=== PATIENT | male | born 1975 | race Caucasian/White ===

== ENCOUNTER 2018-08-20 16:31 | Emergency (ER) | payer MEDICAID, OTHER ==
[2018-08-20] MEDS ORDERED: Zofran 4 MG/2 ML VIAL IV ONE (17:04)
[2018-08-20] MEDS ORDERED: MORPHINE SULFATE 10 MG/ML IV ONE (17:04)
[2018-08-20] MEDS ORDERED: Lasix 40 MG/4 ML IV ONE (17:06)
--- NOTE | 2018-08-20 17:08 | ERPHSYRPT ---
- History of Present Illness Time Seen by Provider: 08/20/18 17:02 Historian: patient, family Exam Limitations: no limitations Patient Subjective Stated Complaint: Pt states "I am in the first stages of liver failure and I have had my abdomen drained about a week ago but now I am hurting really really bad." Triage Nursing Assessment: Pt alert and oriented X 3, skin pwd. PT ambulates with an upright steady gait, pt abdomen is swllen, pt has +4 pitting edema noted to legs and ankles bilat. Physician History: 43 y/o iddm white male with early stage liver failure. his ascites is re accumulating. he last had a paracentesis 6 days ago. he is experiencing abd distension and pain and feels a little soa. liver failure secondary to excess etoh consumption. has not consumed etoh in 7 months. pt has rx for lasix but has not taken any Timing/Duration: day(s) (6 days ascites accumulated) Activities at Onset: none Quality: fullness, pressure Abdominal Pain Onset Location: generalized abdomen Pain Radiation: no radiation Severity of Pain-Max: mild Severity of Pain-Current: mild (mild to mod) Modifying Factors: Improves With: palpation (mild pain) Associated Symptoms: shortness of breath (mild) Previous symptoms: same symptoms as today Allergies/Adverse Reactions: tramadol Allergy (Mild, Verified 11/22/13 18:57) aspirin Allergy (Verified 08/20/18 16:42) bleeding TRIAZADONE Adverse Reaction (Mild, Uncoded 11/22/13 18:57) Nausea Home Medications: Insulin Aspart [NovoLOG Insulin] 10 unit SQ TID 10/03/13 [History] Insulin Glargine [Lantus Insulin] 45 unit SQ QAM 10/03/13 [History] Gabapentin 300 mg PO DAILY 08/20/18 [History] Propranolol HCl 10 mg PO DAILY 08/20/18 [History] Hx Tetanus, Diphtheria Vaccination/Date Given: No Hx Influenza Vaccination/Date Given: No Hx Pneumococcal Vaccination/Date Given: No Immunizations Up to Date: Yes - Review of Systems Constitutional: No Symptoms, No Fever, No Weakness Eyes: No Symptoms Ears, Nose, & Throat: No Symptoms Respiratory: Dyspnea on Exertion (CONKLIN) (mild), No Cough, No Stridor, No Wheezing Cardiac: No No Symptoms Abdominal/Gastrointestinal: Abdominal Pain (more pressure and fullness sensation ), No Nausea, No Vomiting, No Diarrhea Genitourinary Symptoms: No Symptoms, Dysuria, No Frequency, No Hematuria Musculoskeletal: Other (bilat lower ext edema) Psychological: Alcohol Abuse Endocrine: No Symptoms Hematologic/Lymphatic: No Symptoms Immunological/Allergic: No Symptoms All Other Systems: Reviewed and Negative - Past Medical History Pertinent Past Medical History: Yes Neurological History: No Pertinent History ENT History: No Pertinent History Cardiac History: No Pertinent History Respiratory History: No Pertinent History Endocrine Medical History: Diabetes Type II Musculoskeletal History: No Pertinent History GI Medical History: No Pertinent History History: No Pertinent History Psycho-Social History: No Pertinent History Male Reproductive Disorders: No Pertinent History Other Medical History: GOUTY ARTHRITIS, hep c. liver failure - Past Surgical History Past Surgical History: Yes Neuro Surgical History: No Pertinent History Cardiac: No Pertinent History Respiratory: No Pertinent History Gastrointestinal: No Pertinent History Genitourinary: No Pertinent History Musculoskeletal: No Pertinent History Male Surgical History: No Pertinent History Other Surgical History: INGUINAL ABSCESS I&D - Social History Smoking Status: Current every day smoker How long have you smoked: 30 years Exposure to second hand smoke: Yes Drug Use: none Patient Lives Alone: No Significant Family History: heart disease, diabetes - Nursing Vital Signs Nursing Vital Signs: Initial Vital Signs Temperature 98.1 F 08/20/18 16:36 Pulse Rate 100 H 08/20/18 16:36 Respiratory Rate 22 08/20/18 16:36 Blood Pressure 147/102 08/20/18 16:36 O2 Sat by Pulse Oximetry 99 08/20/18 16:36 Pain Scale Pain Intensity 6 - Physical Exam General Appearance: mild distress, alert, anxiety Eye Exam: PERRL/EOMI Ears, Nose, Throat Exam: normal ENT inspection, moist mucous membranes Neck Exam: normal inspection, non-tender, supple, full range of motion Respiratory Exam: normal breath sounds, lungs clear, airway intact, No chest tenderness, No respiratory distress, No accessory muscle use, No rhonchi, No wheezing, No stridor Cardiovascular Exam: regular rate/rhythm, normal heart sounds, normal peripheral pulses Gastrointestinal/Abdomen Exam: soft, normal bowel sounds, No tenderness, No guarding, No rebound Rectal Exam: not done Back Exam: normal inspection, normal range of motion, No CVA tenderness, No vertebral tenderness Extremity Exam: normal inspection, normal range of motion, pelvis stable, pedal edema (bilat lower ext) Neurologic Exam: alert, oriented x 3, cooperative, medication assistant II-XII nml as tested Skin Exam: normal color, warm, dry SpO2 Interpretation: normal SpO2: 99 Oxygen Delivery: Room Air - Course Nursing assessment & vital signs reviewed: Yes Ordered Tests: Active Orders 24 hr Category Date Time Status IV Insertion STAT Care 08/20/18 17:04 Active AMYLASE Stat Lab 08/20/18 17:04 Ordered CBC W DIFF Stat Lab 08/20/18 17:04 Ordered CMP Stat Lab 08/20/18 17:04 Ordered LIPASE Stat Lab 08/20/18 17:04 Ordered Lactic Acid Stat Lab 08/20/18 17:04 Results Lactic Acid Stat Lab 08/20/18 17:10 Ordered PROTIME WITH INR Stat Lab 08/20/18 17:04 Ordered UA W/RFX UR CULTURE Stat Lab 08/20/18 17:34 Received Medication Summary Discontinued Medications Generic Name Dose Route Start Last Admin Trade Name Freq PRN Reason Stop Dose Admin Furosemide 40 mg 08/20/18 17:06 08/20/18 17:13 Lasix 40 Mg/4 Ml IV 08/20/18 17:07 40 mg STAT ONE Administration Furosemide Confirm 08/20/18 17:11 Lasix 40 Mg/4 Ml Administered 08/20/18 17:12 Dose 40 mg .ROUTE .STK-MED ONE Morphine Sulfate 8 mg 08/20/18 17:04 08/20/18 17:12 Morphine Sulfate 10 Mg/Ml IV 08/20/18 17:05 8 mg STAT ONE Administration Morphine Sulfate Confirm 08/20/18 17:11 Morphine Sulfate 10 Mg/Ml Administered 08/20/18 17:12 Dose 10 mg .ROUTE .STK-MED ONE Ondansetron HCl 4 mg 08/20/18 17:04 08/20/18 17:13 Zofran 4 Mg/2 Ml Vial IV 08/20/18 17:05 4 mg STAT ONE Administration Ondansetron HCl Confirm 08/20/18 17:11 Zofran 4 Mg/2 Ml Vial Administered 08/20/18 17:12 Dose 4 mg .ROUTE .STK-MED ONE Oxycodone/Acetaminophen 2 tab 08/20/18 17:52 Percocet Tablet 5/325mg PO 08/20/18 17:53 SENT HOME W/ PATIENT STA Lab/Rad Data: Laboratory Result Diagrams 08/20/18 17:04 08/20/18 17:04 Laboratory Results 08/20/18 08/20/18 08/20/18 Range/Units 17:04 17:04 17:04 WBC 3.2 L (4.0-10.5) K/mm3 RBC 3.52 L (4.1-5.6) M/mm3 Hgb 12.8 (12.5-18.0) gm/dl Hct 36.0 L (42-50) % MCV 102.3 H (78-100) fl MCH 36.3 H (26-32) pg MCHC 35.6 (32-36) g/dl RDW 14.6 H (11.5-14.0) % Plt Count 77 L (150-450) K/mm3 MPV 11.0 H (6-9.5) fl Gran % 64.5 (36.0-66.0) % Eos # (Auto) 0.12 (0-0.5) Absolute Lymphs (auto) 0.61 L (1.0-4.6) Absolute Monos (auto) 0.38 (0.0-1.3) Lymphocytes % 19.2 L (24.0-44.0) % Monocytes % 11.9 (0.0-12.0) % Eosinophils % 3.8 (0.00-5.0) % Basophils % 0.6 (0.0-0.4) % Absolute Granulocytes 2.05 (1.4-6.9) Basophils # 0.02 (0-0.4) Sodium 139 (137-145) mmol/L Potassium 4.1 (3.5-5.1) mmol/L Chloride 108 H (98-107) mmol/L Carbon Dioxide 27 (22-30) mmol/L Anion Gap 8.3 (5-15) MEQ/L BUN 11 (9-20) mg/dL Creatinine 0.65 L (0.66-1.25) mg/dL Estimated GFR > 60.0 ML/MIN Glucose 219 H (74-106) mg/dL Lactic Acid 2.2 H (0.4-2.0) Calcium 8.3 L (8.4-10.2) mg/dL Total Bilirubin 2.30 H (0.2-1.3) mg/dL AST 72 H (17-59) U/L ALT 41 (0-50) U/L Alkaline Phosphatase 203 H (38-126) U/L Serum Total Protein 7.3 (6.3-8.2) g/dL Albumin 2.6 L (3.5-5.0) g/dL Amylase 61 (30-110) U/L Lipase 248 (23-300) U/L - Progress Progress: unchanged, pain not gone completely Progress Note: 08/20/18 17:42 had long discussion with pt. his primary issue is mild to mod abd pain described more as a pressure and fullness. i gave him options for paracentesis. he has chosen interventional radiologist to perform tomorrow morning. we have made arrangements for him. i think this is reasonable since pt vss and clinically pt is not in significant distress. will provide pt with pain medication here in ED. Counseled pt/family regarding: lab results, diagnosis, need for follow-up - Departure Time of Disposition: 17:54 Departure Disposition: Home Clinical Impression: Ascites due to alcoholic cirrhosis, Abdominal pain Condition: Stable Critical Care Time: No Referrals: ROSALINDA BENTON [Primary Care Provider] - Additional Instructions: nothing by mouth after midnight. follow up at registration tomorrow, Aug 21, 2018, morning at 0830 am. radiographic guided paracentesis at 0900
[2018-08-20] MEDS ORDERED: Lasix 40 MG/4 ML ONE (17:11)
[2018-08-20] MEDS ORDERED: MORPHINE SULFATE 10 MG/ML ONE (17:11)
[2018-08-20] MEDS ORDERED: Zofran 4 MG/2 ML VIAL ONE (17:11)
[2018-08-20 17:20] LABS: Lactic Acid 2.2 (0.4-2.0)
[2018-08-20 17:22] LABS: BASOPHIL % 0.6 % (0.0-0.4); Basophil (Absolute #) 0.02 (0-0.4); Eosinophil % 3.8 % (0.00-5.0); Eosinophil (Absolute #) 0.12 (0-0.5); Granulocyte Absolute (ANC) 2.05 (1.4-6.9); Granulocytes % 64.5 % (36.0-66.0); Hemoglobin 12.8 gm/dl (12.5-18.0); Lymphocyte (Absolute #) 0.61 (1.0-4.6); Lymphocytes % 19.2 % (24.0-44.0); Mean Cell Volume 102.3 fl (78-100); Mean Corpuscular Hgb Concent. 35.6 g/dl (32-36); Monocyte (Absolute #) 0.38 (0.0-1.3); Monocytes % 11.9 % (0.0-12.0); Platelet Count 77 K/mm3 (150-450); Red Blood Count 3.52 M/mm3 (4.1-5.6); Red Cell Distribution Width 14.6 % (11.5-14.0); White Blood Count 3.2 K/mm3 (4.0-10.5)
[2018-08-20 17:35] LABS: ALBUMIN 2.6 g/dL (3.5-5.0); ALKALINE PHOSPHATASE 203 U/L (38-126); AMYLASE 61 U/L (30-110); ANION GAP 8.3 MEQ/L (5-15); BLOOD UREA NITROGEN 11 mg/dL (9-20); CHLORIDE 108 mmol/L (98-107); Calcium 8.3 mg/dL (8.4-10.2); Carbon Dioxide 27 mmol/L (22-30); Creatinine 1 0.65 mg/dL (0.66-1.25); Glucose 219 mg/dL (74-106); LIPASE 248 U/L (23-300); Potassium 4.1 mmol/L (3.5-5.1); SGOT/AST 72 U/L (17-59); SGPT/ALT 41 U/L (0-50); SODIUM 139 mmol/L (137-145); Total Protein 7.3 g/dL (6.3-8.2)
[2018-08-20 17:41] LABS: INR 1.45 (0.8-3.0)
[2018-08-20 17:43] LABS: Mean Corpuscular Hemoglobin 36.3 pg (26-32)
[2018-08-20] MEDS ORDERED: PERCOCET TABLET 5/325MG PO STA (17:52)
[2018-08-20 17:55] LABS: Appearance CLEAR (CLEAR); Bilirubin NEGATIVE (NEGATIVE); Glucose >=500 mg/dL (NEGATIVE); Ketones NEGATIVE (NEGATIVE); Leukocyte Esterase NEGATIVE (NEGATIVE); Nitrite NEGATIVE (NEGATIVE); Protein,Urine Dip NEGATIVE (Negative); Specific Gravity 1.027 (1.005-1.025); Urobilinogen 4 mg/dL (0-1)
[2018-08-20 17:56] LABS: Blood SMALL Ery/ul (0-5)
[2018-08-20 18:02] VITALS: BP 122/86; PULSE 90; O2SAT 97
== END 2018-08-20 18:18 | disposition home or self-care (01) ==
LOC: ED 16:31
DX: K70.31 Alcoholic cirrhosis of liver with ascites (principal); R10.9 Unspecified abdominal pain; K70.40 Alcoholic hepatic failure without coma; E11.9 Type 2 diabetes mellitus without complications; Z79.4 Long term (current) use of insulin; Z79.899 Other long term (current) drug therapy
CPT/HCPCS: 36000; 36415; 80053; 81001; 82150; 83605; 83690; 85025; 85610; 96374; 96375; 99284; J1940; J2270; J2405

== ENCOUNTER 2018-08-22 10:24 | Emergency (ER) | payer OTHER ==
[2018-08-22] MEDS ORDERED: XYLOCAINE 1% HCL 20 ML MDV IJ ONE (10:25)
--- NOTE | 2018-08-22 10:34 | ERPHSYRPT ---
- History of Present Illness Time Seen by Provider: 08/22/18 10:28 Historian: patient, family Exam Limitations: no limitations Physician History: 43 y/o noncompliant white male with h/o liver failure and recurrent intraabd ascites. pt was seen here on 08/20/18 and scheduled for u/s guided paracentesis. however, pt overslept and failed to show up. his ascites has increased causing increased abd pain and increasing soa. Timing/Duration: gradual onset, worse Activities at Onset: none Quality: fullness, pressure, tightness Abdominal Pain Onset Location: generalized abdomen Pain Radiation: no radiation Severity of Pain-Max: moderate Severity of Pain-Current: moderate Modifying Factors: Improves With: vomiting Associated Symptoms: loss of appetite, nausea, vomiting Previous symptoms: same symptoms as today Allergies/Adverse Reactions: tramadol Allergy (Mild, Verified 08/22/18 10:35) aspirin Allergy (Verified 08/22/18 10:35) bleeding TRIAZADONE Adverse Reaction (Mild, Uncoded 08/22/18 10:35) Nausea Home Medications: Insulin Aspart [NovoLOG Insulin] 10 unit SQ TID 10/03/13 [History] Insulin Glargine [Lantus Insulin] 45 unit SQ QAM 10/03/13 [History] Gabapentin 300 mg PO DAILY 08/20/18 [History] Propranolol HCl 10 mg PO DAILY 08/20/18 [History] Hx Tetanus, Diphtheria Vaccination/Date Given: No Hx Influenza Vaccination/Date Given: No Hx Pneumococcal Vaccination/Date Given: No - Review of Systems Constitutional: No Symptoms Eyes: No Symptoms Ears, Nose, & Throat: No Symptoms, Throat Swelling Cardiac: No Symptoms Abdominal/Gastrointestinal: Abdominal Pain, Nausea, Vomiting Genitourinary Symptoms: No Symptoms Musculoskeletal: No Symptoms Skin: No Symptoms Neurological: No Symptoms Psychological: No Symptoms Endocrine: No Symptoms Hematologic/Lymphatic: No Symptoms Immunological/Allergic: No Symptoms All Other Systems: Reviewed and Negative - Past Medical History Pertinent Past Medical History: Yes Neurological History: No Pertinent History ENT History: No Pertinent History Cardiac History: No Pertinent History Respiratory History: No Pertinent History Endocrine Medical History: Diabetes Type II Musculoskeletal History: No Pertinent History GI Medical History: No Pertinent History History: No Pertinent History Psycho-Social History: No Pertinent History Male Reproductive Disorders: No Pertinent History Other Medical History: GOUTY ARTHRITIS, hep c. liver failure - Past Surgical History Past Surgical History: Yes Neuro Surgical History: No Pertinent History Cardiac: No Pertinent History Respiratory: No Pertinent History Gastrointestinal: No Pertinent History Genitourinary: No Pertinent History Musculoskeletal: No Pertinent History Male Surgical History: No Pertinent History Other Surgical History: INGUINAL ABSCESS I&D - Social History Smoking Status: Current every day smoker How long have you smoked: 30 years Exposure to second hand smoke: Yes Drug Use: none Patient Lives Alone: No Significant Family History: heart disease, diabetes - Nursing Vital Signs Nursing Vital Signs: Initial Vital Signs Pulse Rate 109 H 08/22/18 10:27 O2 Sat by Pulse Oximetry 98 08/22/18 10:27 Pain Scale Pain Intensity 9 - Physical Exam General Appearance: mild distress, alert, anxiety Eye Exam: PERRL/EOMI, eyes nml inspection Ears, Nose, Throat Exam: normal ENT inspection, moist mucous membranes Neck Exam: normal inspection, non-tender, supple, full range of motion, No lymphadenopathy Respiratory Exam: normal breath sounds, lungs clear, airway intact, No chest tenderness, No respiratory distress Cardiovascular Exam: normal peripheral pulses, tachycardia Gastrointestinal/Abdomen Exam: tenderness (generalized), distention, No guarding , No ecchymosis, No pulsatile mass, No rebound Rectal Exam: not done Back Exam: normal inspection, normal range of motion, No CVA tenderness, No vertebral tenderness Extremity Exam: normal inspection, normal range of motion, pelvis stable Neurologic Exam: alert, oriented x 3, cooperative, fitness manager II-XII nml as tested Skin Exam: normal color, warm, dry Lymphatic Exam: No adenopathy SpO2 Interpretation: normal Oxygen Delivery: Room Air - Course Nursing assessment & vital signs reviewed: Yes Ordered Tests: Active Orders 24 hr Category Date Time Status ABDOMINAL PARACENTESIS [US] Routine Exams 08/22/18 11:00 Ordered Medication Summary Discontinued Medications Generic Name Dose Route Start Last Admin Trade Name Freq PRN Reason Stop Dose Admin Lorazepam 1 mg 08/22/18 11:12 08/22/18 11:16 Ativan 2 Mg/1 Ml Vial IV 08/22/18 11:13 1 mg STAT ONE Administration Lorazepam Confirm 08/22/18 11:12 Ativan 2 Mg/1 Ml Vial Administered 08/22/18 11:13 Dose 2 mg .ROUTE .STK-MED ONE Promethazine HCl 12.5 mg 08/22/18 10:37 08/22/18 10:47 Phenergan 25 Mg Inj IV 08/22/18 10:38 12.5 mg STAT ONE Administration Promethazine HCl Confirm 08/22/18 10:39 Phenergan 25 Mg Inj Administered 08/22/18 10:40 Dose 25 mg .ROUTE .STK-MED ONE - Progress Progress: unchanged Progress Note: 08/22/18 10:48 pt now wants to go to [facility] because i am not giving him narcotic medication. i told him at outset i was not going to give him narcotics but i would give him phenergan iv. i told him the best way to improve his pain is to get the paracentesis performed. it has been scheduled to be done in the next 30 - 45 minutes. he first stated he wants to speak to my boss. i told him i did not have a boss. Whitney, RN terminal operations supervisor, spoke with him. He is going to stay and have paracentesis performed. I told him i would re assess his pain AFTER the paracentesis. 08/22/18 11:43 pt returns from ultrasound. pt refuses paracentesis after signing consent because he does not want area re stuck with needle. the radiologist, radiolgy tech and myself explained to pt about the need to remove the recurrent ascites. we d/w him the risks of not draining fluid including worsening abd pain, worsening soa and even . he understands and several times says no to any further tx. he is to sign an AMA form Counseled pt/family regarding: diagnosis, need for follow-up, rad results - Departure Time of Disposition: 11:46 Departure Disposition: AMA Clinical Impression: Ascites due to alcoholic cirrhosis Condition: Stable Critical Care Time: No Referrals: ROSALINDA BENTON [Primary Care Provider] - Additional Instructions: return to ED if symptoms worsen. take your medications as prescribed
[2018-08-22 10:35] VITALS: O2SAT 98
[2018-08-22] MEDS ORDERED: Phenergan 25 MG INJ IV ONE (10:37)
[2018-08-22] MEDS ORDERED: Phenergan 25 MG INJ ONE (10:39)
[2018-08-22] MEDS ORDERED: Ativan 2 MG/1 ML VIAL ONE (11:12)
[2018-08-22] MEDS ORDERED: Ativan 2 MG/1 ML VIAL IV ONE (11:12)
[2018-08-22 11:19] VITALS: PULSE 101
--- NOTE | 2018-08-22 13:08 | XRAY ---
Indication: Ascites. Limited abdominal sonogram performed for therapeutic paracentesis. Largest pocket seen in the right lower quadrant. Paracentesis not performed as the patient refused and later signed out AGAINST MEDICAL ADVICE per emergency room personnel.
== END 2018-08-22 12:01 | disposition left against medical advice (07) ==
LOC: ED 10:24
DX: K70.31 Alcoholic cirrhosis of liver with ascites (principal); Z79.899 Other long term (current) drug therapy; E11.9 Type 2 diabetes mellitus without complications; Z79.4 Long term (current) use of insulin
CPT/HCPCS: 36000; 76705; 96374; 96375; 99284; J2060; J2550

== ENCOUNTER 2018-11-18 17:28 | Emergency (ER) | payer OTHER ==
[2018-11-18] MEDS ORDERED: MORPHINE SULFATE 10 MG/ML IV ONE (18:01)
[2018-11-18] MEDS ORDERED: Zofran 4 MG/2 ML VIAL IV ONE (18:01)
--- NOTE | 2018-11-18 18:01 | ERPHSYRPT ---
- History of Present Illness Historian: patient, family Exam Limitations: no limitations Patient Subjective Stated Complaint: chest pain Triage Nursing Assessment: Pt c/o of chest pain due to severe fluid build up in abdomen due to end stage of liver failure, tachycardic, tachypnea, afebrile, he states that he was drained last week, N&V, pain in medial gastric region that radiates down abdomen, Timing/Duration: today, gradual onset, worse Activities at Onset: none Quality: fullness, sharpness Abdominal Pain Onset Location: generalized abdomen Pain Radiation: no radiation Severity of Pain-Max: severe Severity of Pain-Current: severe Modifying Factors: Improves With: vomiting Associated Symptoms: heartburn, nausea, vomiting Previous symptoms: same symptoms as today, recently seen, recently treated Hx Tetanus, Diphtheria Vaccination/Date Given: No Hx Influenza Vaccination/Date Given: No Hx Pneumococcal Vaccination/Date Given: No <IRVIN SOTELO - Last Filed: 11/18/18 19:43> <RYAN MELENDEZ - Last Filed: 11/18/18 20:26> - History of Present Illness Time Seen by Provider: 11/18/18 17:57 Physician History: The patient is a 43-year-old male with his complaining of severe abdominal pain due to ascites and also some chest pressure. He has paracentesis done once a week at [facility] in [place]. Last week he had 8 liters of fluid removed from his abdomen. Today his abdomen is greatly swollen and painful. They were on their way to [place] from [place] but were unable to make entire distance because of the abdominal pain. He has no known coronary artery disease. His past medical history is significant for hepatitis C, ascites, end-stage liver disease due to alcoholic cirrhosis. (IRVIN SOTELO) Allergies/Adverse Reactions: tramadol Allergy (Mild, Verified 11/18/18 17:42) aspirin Allergy (Verified 11/18/18 17:42) bleeding hydromorphone [From Dilaudid] Adverse Reaction (Verified 11/18/18 17:42) TRIAZADONE Adverse Reaction (Mild, Uncoded 08/22/18 10:35) Nausea Home Medications: Furosemide 40 mg PO BID 11/18/18 [History] Lactulose 10 gm/15 ml [Enulose 10 GM/15 ML] 40 ml PO BID 11/18/18 [History ] Spironolactone 100 mg PO BID 11/18/18 [History] - Review of Systems Constitutional: No Fever, No Chills Eyes: No Symptoms Ears, Nose, & Throat: No Symptoms Respiratory: No Cough, No Dyspnea Cardiac: No Chest Pain, No Edema, No Syncope Abdominal/Gastrointestinal: Abdominal Pain, Nausea, Vomiting Genitourinary Symptoms: No Dysuria Musculoskeletal: No Back Pain, No Neck Pain Skin: No Rash Neurological: No Dizziness, No Focal Weakness, No Sensory Changes Psychological: No Symptoms Endocrine: No Symptoms Hematologic/Lymphatic: No Symptoms Immunological/Allergic: No Symptoms All Other Systems: Reviewed and Negative <IRVIN SOTELO - Last Filed: 11/18/18 19:43> - Past Medical History Pertinent Past Medical History: Yes Neurological History: No Pertinent History ENT History: No Pertinent History Cardiac History: No Pertinent History Respiratory History: No Pertinent History Endocrine Medical History: Diabetes Type II Musculoskeletal History: No Pertinent History GI Medical History: No Pertinent History History: No Pertinent History Psycho-Social History: No Pertinent History Male Reproductive Disorders: No Pertinent History Other Medical History: GOUTY ARTHRITIS, hep c. liver failure - Past Surgical History Past Surgical History: Yes Neuro Surgical History: No Pertinent History Cardiac: No Pertinent History Respiratory: No Pertinent History Gastrointestinal: No Pertinent History Genitourinary: No Pertinent History Musculoskeletal: No Pertinent History Male Surgical History: No Pertinent History Other Surgical History: INGUINAL ABSCESS I&D - Social History Smoking Status: Current every day smoker How long have you smoked: 30 years Exposure to second hand smoke: Yes Drug Use: none Patient Lives Alone: No Significant Family History: heart disease, diabetes <IRVIN SOTELO - Last Filed: 11/18/18 19:43> - Physical Exam General Appearance: moderate distress Eye Exam: PERRL/EOMI, eyes nml inspection Ears, Nose, Throat Exam: normal ENT inspection, pharynx normal, moist mucous membranes Neck Exam: normal inspection, non-tender, supple, full range of motion Respiratory Exam: normal breath sounds, lungs clear, No respiratory distress Cardiovascular Exam: regular rate/rhythm, normal heart sounds Gastrointestinal/Abdomen Exam: tenderness (generalized), distention Rectal Exam: not done Back Exam: normal inspection Extremity Exam: normal range of motion, pelvis stable, pedal edema Neurologic Exam: alert, oriented x 3, cooperative, normal mood/affect, nml cerebellar function, sensation nml, No motor deficits Skin Exam: normal color, warm, dry SpO2 Interpretation: normal SpO2: 99 <IRVIN SOTELO - Last Filed: 11/18/18 19:43> - Nursing Vital Signs Nursing Vital Signs: Initial Vital Signs Temperature 98.4 F 11/18/18 17:30 Pulse Rate 108 H 11/18/18 17:30 Respiratory Rate 22 11/18/18 17:30 Blood Pressure 134/94 11/18/18 17:30 O2 Sat by Pulse Oximetry 99 11/18/18 17:30 Pain Scale Pain Intensity 10 - Course EKG Interpreted by Me: RATE, Sinus Rhythm, Sinus Tach, NORMAL AXIS, NORMAL INTERVALS, Other (old anteroseptal infarct) - CT Exams Abdomen/Pelvis CT Interpretation: Tele-radiologist Report (per Dr Denise), Other (significant abd/ pelvis ascites with cirrhotic liver; anasarca) <IRVIN SOTELO - Last Filed: 11/18/18 19:43> Ordered Tests: Active Orders 24 hr Category Date Time Status Clean Catch Urine Specimen STAT Care 11/18/18 18:01 Active EKG-ER Only STAT Care 11/18/18 18:01 Active IV Insertion STAT Care 11/18/18 18:01 Active ABDOMEN AND PELVIS W/0 CONTRAS [CT] Stat Exams 11/18/18 18:48 Taken CBC W DIFF Stat Lab 11/18/18 17:50 Completed CMP Stat Lab 11/18/18 17:50 Completed LIPASE Stat Lab 11/18/18 17:50 Completed Lactic Acid Stat Lab 11/18/18 18:30 Results TROPONIN Q3H Lab 11/18/18 17:50 Completed TROPONIN Q3H Lab 11/18/18 21:15 Ordered TROPONIN Q3H Lab 11/19/18 00:15 Ordered TROPONIN Q3H Lab 11/19/18 03:15 Ordered TROPONIN Q3H Lab 11/19/18 06:15 Ordered UA W/RFX UR CULTURE Stat Lab 11/18/18 18:42 Completed Urine Triage Profile Stat Lab 11/18/18 18:42 Completed Medication Summary Discontinued Medications Generic Name Dose Route Start Last Admin Trade Name Freq PRN Reason Stop Dose Admin Morphine Sulfate 8 mg 11/18/18 18:01 11/18/18 18:09 Morphine Sulfate 10 Mg/Ml IV 11/18/18 18:02 8 mg STAT ONE Administration Morphine Sulfate Confirm 11/18/18 18:06 Morphine Sulfate 10 Mg/Ml Administered 11/18/18 18:07 Dose 10 mg .ROUTE .STK-MED ONE Ondansetron HCl 4 mg 11/18/18 18:01 11/18/18 18:07 Zofran 4 Mg/2 Ml Vial IV 11/18/18 18:02 4 mg STAT ONE Administration Ondansetron HCl Confirm 11/18/18 18:05 Zofran 4 Mg/2 Ml Vial Administered 11/18/18 18:06 Dose 4 mg .ROUTE .STK-MED ONE Lab/Rad Data: Laboratory Result Diagrams 11/18/18 17:50 11/18/18 17:50 Laboratory Results 11/18/18 11/18/18 11/18/18 Range/Units 18:42 18:42 18:30 WBC (4.0-10.5) K/mm3 RBC (4.1-5.6) M/mm3 Hgb (12.5-18.0) gm/dl Hct (42-50) % MCV (78-100) fl MCH (26-32) pg MCHC (32-36) g/dl RDW (11.5-14.0) % Plt Count (150-450) K/mm3 MPV (6-9.5) fl Gran % (36.0-66.0) % Eos # (Auto) (0-0.5) Absolute Lymphs (auto) (1.0-4.6) Absolute Monos (auto) (0.0-1.3) Lymphocytes % (24.0-44.0) % Monocytes % (0.0-12.0) % Eosinophils % (0.00-5.0) % Basophils % (0.0-0.4) % Absolute Granulocytes (1.4-6.9) Basophils # (0-0.4) Sodium (137-145) mmol/L Potassium (3.5-5.1) mmol/L Chloride (98-107) mmol/L Carbon Dioxide (22-30) mmol/L Anion Gap (5-15) MEQ/L BUN (9-20) mg/dL Creatinine (0.66-1.25) mg/dL Estimated GFR ML/MIN Glucose (74-106) mg/dL Lactic Acid 2.2 H (0.4-2.0) Calcium (8.4-10.2) mg/dL Total Bilirubin (0.2-1.3) mg/dL AST (17-59) U/L ALT (0-50) U/L Alkaline Phosphatase (38-126) U/L Ammonia (9-30) umol/L Troponin I (0.000-0.034) ng/mL Serum Total Protein (6.3-8.2) g/dL Albumin (3.5-5.0) g/dL Lipase (23-300) U/L Urine Color CAROLANN (YELLOW) Urine Appearance SLIGHTLY CLOUDY (CLEAR) Urine pH 5.0 (5-6) Ur Specific Gerlach 1.025 (1.005-1.025) Urine Protein NEGATIVE (Negative) Urine Ketones NEGATIVE (NEGATIVE) Urine Blood MODERATE (0-5) Ludwig/ul Urine Nitrite NEGATIVE (NEGATIVE) Urine Bilirubin SMALL (NEGATIVE) Urine Urobilinogen 4 (0-1) mg/dL Ur Leukocyte Esterase NEGATIVE (NEGATIVE) Urine WBC (Auto) 0-2 (0-5) /HPF Urine RBC (Auto) 6-10 (0-2) /HPF U Epithel Cells (Auto) NONE (FEW) /HPF Urine Bacteria (Auto) FEW (NEGATIVE) /HPF Calcium Oxalate Crystal 3-5 (NEGATIVE) /HPF Urine Mucus (Auto) MANY (NEGATIVE) /HPF Urine Culture Reflexed NO (NO) Urine Glucose NEGATIVE (NEGATIVE) mg/dL Urine Opiates Level POSITIVE (NEGATIVE) Ur Methadone NEGATIVE (NEGATIVE) Urine Barbiturates POSITIVE (NEGATIVE) Ur Phencyclidine (PCP) NEGATIVE (NEGATIVE) Urine Amphetamine NEGATIVE (NEGATIVE) U Benzodiazepine Level NEGATIVE (NEGATIVE) Urine Cocaine NEGATIVE (NEGATIVE) Urine Marijuana (THC) NEGATIVE (NEGATIVE) 11/18/18 11/18/18 11/18/18 Range/Units 17:50 17:50 17:50 WBC (4.0-10.5) K/mm3 RBC (4.1-5.6) M/mm3 Hgb (12.5-18.0) gm/dl Hct (42-50) % MCV (78-100) fl MCH (26-32) pg MCHC (32-36) g/dl RDW (11.5-14.0) % Plt Count (150-450) K/mm3 MPV (6-9.5) fl Gran % (36.0-66.0) % Eos # (Auto) (0-0.5) Absolute Lymphs (auto) (1.0-4.6) Absolute Monos (auto) (0.0-1.3) Lymphocytes % (24.0-44.0) % Monocytes % (0.0-12.0) % Eosinophils % (0.00-5.0) % Basophils % (0.0-0.4) % Absolute Granulocytes (1.4-6.9) Basophils # (0-0.4) Sodium 139 (137-145) mmol/L Potassium 3.7 (3.5-5.1) mmol/L Chloride 107 (98-107) mmol/L Carbon Dioxide 24 (22-30) mmol/L Anion Gap 11.2 (5-15) MEQ/L BUN 13 (9-20) mg/dL Creatinine 0.78 (0.66-1.25) mg/dL Estimated GFR > 60.0 ML/MIN Glucose 125 H (74-106) mg/dL Lactic Acid (0.4-2.0) Calcium 8.6 (8.4-10.2) mg/dL Total Bilirubin 3.90 H (0.2-1.3) mg/dL AST 71 H (17-59) U/L ALT 37 (0-50) U/L Alkaline Phosphatase 169 H (38-126) U/L Ammonia 41 H (9-30) umol/L Troponin I < 0.012 (0.000-0.034) ng/mL Serum Total Protein 8.0 (6.3-8.2) g/dL Albumin 2.8 L (3.5-5.0) g/dL Lipase 194 (23-300) U/L Urine Color (YELLOW) Urine Appearance (CLEAR) Urine pH (5-6) Ur Specific Gerlach (1.005-1.025) Urine Protein (Negative) Urine Ketones (NEGATIVE) Urine Blood (0-5) Ludwig/ul Urine Nitrite (NEGATIVE) Urine Bilirubin (NEGATIVE) Urine Urobilinogen (0-1) mg/dL Ur Leukocyte Esterase (NEGATIVE) Urine WBC (Auto) (0-5) /HPF Urine RBC (Auto) (0-2) /HPF U Epithel Cells (Auto) (FEW) /HPF Urine Bacteria (Auto) (NEGATIVE) /HPF Calcium Oxalate Crystal (NEGATIVE) /HPF Urine Mucus (Auto) (NEGATIVE) /HPF Urine Culture Reflexed (NO) Urine Glucose (NEGATIVE) mg/dL Urine Opiates Level (NEGATIVE) Ur Methadone (NEGATIVE) Urine Barbiturates (NEGATIVE) Ur Phencyclidine (PCP) (NEGATIVE) Urine Amphetamine (NEGATIVE) U Benzodiazepine Level (NEGATIVE) Urine Cocaine (NEGATIVE) Urine Marijuana (THC) (NEGATIVE) 11/18/18 Range/Units 17:50 WBC 3.7 L (4.0-10.5) K/mm3 RBC 3.15 L (4.1-5.6) M/mm3 Hgb 11.5 L (12.5-18.0) gm/dl Hct 32.3 L (42-50) % MCV 102.5 H (78-100) fl MCH 36.5 H (26-32) pg MCHC 35.6 (32-36) g/dl RDW 14.9 H (11.5-14.0) % Plt Count 83 L (150-450) K/mm3 MPV 10.5 H (6-9.5) fl Gran % 65.0 (36.0-66.0) % Eos # (Auto) 0.13 (0-0.5) Absolute Lymphs (auto) 0.74 L (1.0-4.6) Absolute Monos (auto) 0.42 (0.0-1.3) Lymphocytes % 19.9 L (24.0-44.0) % Monocytes % 11.3 (0.0-12.0) % Eosinophils % 3.5 (0.00-5.0) % Basophils % 0.3 (0.0-0.4) % Absolute Granulocytes 2.41 (1.4-6.9) Basophils # 0.01 (0-0.4) Sodium (137-145) mmol/L Potassium (3.5-5.1) mmol/L Chloride (98-107) mmol/L Carbon Dioxide (22-30) mmol/L Anion Gap (5-15) MEQ/L BUN (9-20) mg/dL Creatinine (0.66-1.25) mg/dL Estimated GFR ML/MIN Glucose (74-106) mg/dL Lactic Acid (0.4-2.0) Calcium (8.4-10.2) mg/dL Total Bilirubin (0.2-1.3) mg/dL AST (17-59) U/L ALT (0-50) U/L Alkaline Phosphatase (38-126) U/L Ammonia (9-30) umol/L Troponin I (0.000-0.034) ng/mL Serum Total Protein (6.3-8.2) g/dL Albumin (3.5-5.0) g/dL Lipase (23-300) U/L Urine Color (YELLOW) Urine Appearance (CLEAR) Urine pH (5-6) Ur Specific Gerlach (1.005-1.025) Urine Protein (Negative) Urine Ketones (NEGATIVE) Urine Blood (0-5) Ludwig/ul Urine Nitrite (NEGATIVE) Urine Bilirubin (NEGATIVE) Urine Urobilinogen (0-1) mg/dL Ur Leukocyte Esterase (NEGATIVE) Urine WBC (Auto) (0-5) /HPF Urine RBC (Auto) (0-2) /HPF U Epithel Cells (Auto) (FEW) /HPF Urine Bacteria (Auto) (NEGATIVE) /HPF Calcium Oxalate Crystal (NEGATIVE) /HPF Urine Mucus (Auto) (NEGATIVE) /HPF Urine Culture Reflexed (NO) Urine Glucose (NEGATIVE) mg/dL Urine Opiates Level (NEGATIVE) Ur Methadone (NEGATIVE) Urine Barbiturates (NEGATIVE) Ur Phencyclidine (PCP) (NEGATIVE) Urine Amphetamine (NEGATIVE) U Benzodiazepine Level (NEGATIVE) Urine Cocaine (NEGATIVE) Urine Marijuana (THC) (NEGATIVE) - Progress Progress: improved Counseled pt/family regarding: lab results, diagnosis, rad results <IRVIN SOTELO - Last Filed: 11/18/18 19:43> - Progress Progress: improved, re-examined <RYAN MELENDEZ - Last Filed: 11/18/18 20:26> - Progress Progress Note: 11/18/18 20:[address] bradley barba at [facility]. i reviewed pt hx , condition, labs ct results with him. he accepts pt in transfer to their facility. (RYAN MELENDEZ) - Departure Time of Disposition: 19:46 Departure Disposition: Transfer (transfer to [facility] per Dr Hatch) Critical Care Time: No <IRVIN SOTELO - Last Filed: 11/18/18 19:43> <RYAN MELENDEZ - Last Filed: 11/18/18 20:26> - Departure Clinical Impression: Ascites, Thrombocytopenia Condition: Stable Referrals: ROSALINDA BENTON [ACTIVE STAFF] -
[2018-11-18] MEDS ORDERED: Zofran 4 MG/2 ML VIAL ONE (18:05)
[2018-11-18] MEDS ORDERED: MORPHINE SULFATE 10 MG/ML ONE (18:06)
[2018-11-18 18:11] LABS: BASOPHIL % 0.3 % (0.0-0.4); Basophil (Absolute #) 0.01 (0-0.4); Eosinophil % 3.5 % (0.00-5.0); Eosinophil (Absolute #) 0.13 (0-0.5); Granulocyte Absolute (ANC) 2.41 (1.4-6.9); Hematocrit 32.3 % (42-50); Hemoglobin 11.5 gm/dl (12.5-18.0); Lymphocyte (Absolute #) 0.74 (1.0-4.6); Lymphocytes % 19.9 % (24.0-44.0); Mean Cell Volume 102.5 fl (78-100); Mean Corpuscular Hemoglobin 36.5 pg (26-32); Mean Corpuscular Hgb Concent. 35.6 g/dl (32-36); Mean Platelet Volume 10.5 fl (6-9.5); Monocyte (Absolute #) 0.42 (0.0-1.3); Monocytes % 11.3 % (0.0-12.0); Platelet Count 83 K/mm3 (150-450); Red Blood Count 3.15 M/mm3 (4.1-5.6); Red Cell Distribution Width 14.9 % (11.5-14.0); White Blood Count 3.7 K/mm3 (4.0-10.5)
[2018-11-18 18:29] LABS: ALBUMIN 2.8 g/dL (3.5-5.0); ALKALINE PHOSPHATASE 169 U/L (38-126); ANION GAP 11.2 MEQ/L (5-15); BLOOD UREA NITROGEN 13 mg/dL (9-20); CHLORIDE 107 mmol/L (98-107); Calcium 8.6 mg/dL (8.4-10.2); Carbon Dioxide 24 mmol/L (22-30); Creatinine 1 0.78 mg/dL (0.66-1.25); Glucose 125 mg/dL (74-106); LIPASE 194 U/L (23-300); Potassium 3.7 mmol/L (3.5-5.1); SGOT/AST 71 U/L (17-59); SGPT/ALT 37 U/L (0-50); SODIUM 139 mmol/L (137-145)
[2018-11-18 18:34] LABS: Lactic Acid 2.2 (0.4-2.0)
[2018-11-18 19:00] LABS: Amphetamine,Urine NEGATIVE (NEGATIVE); Barbiturate,Urine POSITIVE (NEGATIVE); Benzodiazepine,Urine NEGATIVE (NEGATIVE); Cocaine,Urine NEGATIVE (NEGATIVE); Methadone,Urine NEGATIVE (NEGATIVE); Opiate,Urine POSITIVE (NEGATIVE); PCP,Urine NEGATIVE (NEGATIVE); THC,Urine NEGATIVE (NEGATIVE)
[2018-11-18 19:07] LABS: Appearance SLIGHTLY CLOUDY (CLEAR); Bacteria FEW /HPF (NEGATIVE); Bilirubin SMALL (NEGATIVE); Blood MODERATE Ery/ul (0-5); Glucose NEGATIVE (NEGATIVE); Ketones NEGATIVE (NEGATIVE); Leukocyte Esterase NEGATIVE (NEGATIVE); Mucus MANY /HPF (NEGATIVE); Nitrite NEGATIVE (NEGATIVE); Protein,Urine Dip NEGATIVE (Negative); Specific Gravity 1.025 (1.005-1.025); Urobilinogen 4 mg/dL (0-1); WBC 0-2 /HPF (0-5)
[2018-11-18 20:10] VITALS: PULSE 104
[2018-11-18 20:42] VITALS: BP 129/85; O2SAT 94
--- NOTE | 2018-11-19 08:50 | XRAY ---
Indication: Abdomen pain. Ascites. Stage IV liver failure. Multiple contiguous axial images obtained through the abdomen and pelvis without contrast as ordered. Comparison: None Lung bases demonstrates bibasilar subsegmental atelectasis/scarring and partially visualized right middle lobe calcified granuloma. No infiltrate or effusion. Heart is not enlarged. A few subcarinal and right infrahilar calcified nodes. Noncontrasted stomach and bowel loops appear nonobstructed. Patient reports appendectomy. There is massive abdomen/pelvic ascites. Associated small cirrhotic liver, 21 cm splenomegaly, left upper quadrant collateral vessels, and anasarca A few nonobstructing bilateral renal micro-calculi. Remaining gallbladder, pancreas, adrenal glands, kidneys, ureters, and bladder appear unremarkable for noncontrast exam. Minimal aortic calcifications without AAA. Osseous structures intact with lumbosacral junction degenerative disc disease. No ventral or inguinal hernias. Impression: 1. Massive abdomen/pelvic ascites with associated cirrhosis, splenomegaly, left upper quadrant collateral vessels, and anasarca. 2. Nonobstructing bilateral renal micro-calculi. 3. Right base effusion and evidence for old granulomatous disease. CT DI 22.92
== END 2018-11-18 21:10 | disposition short-term general hospital (02) ==
LOC: ED 17:28
DX: R18.8 Other ascites (principal); D69.6 Thrombocytopenia, unspecified; E11.9 Type 2 diabetes mellitus without complications; M10.9 Gout, unspecified; B19.20 Unspecified viral hepatitis C without hepatic coma; R07.89 Other chest pain; K72.90 Hepatic failure, unspecified without coma; K70.30 Alcoholic cirrhosis of liver without ascites
CPT/HCPCS: 36000; 36415; 74176; 80053; 80307; 81001; 82140; 83605; 83690; 84484; 85025; 93005; 96374; 96375; 99284; J2270; J2405

== ENCOUNTER 2018-11-23 16:02 | Emergency (ER) | payer OTHER ==
--- NOTE | 2018-11-23 16:41 | ERPHSYRPT ---
- History of Present Illness Time Seen by Provider: 11/23/18 16:20 Historian: patient, family Patient Subjective Stated Complaint: pt reports abd pain, nausea, vomiting x2 episodes. pt reports history of liver failure, states last sunday he was at [facility] and had 10.8 liters drained from his abdomen as well as esophageal varices banded. states at discharge he was feeling better but has started feeling fullness in his abdomen again. Triage Nursing Assessment: pt is aox3, pupils perrl, sclera have yellow tint, pt afebrile, resps easy and non labored, radial pulses strong and equal, pt is tachycardic at a rate of 112, cap refill < 3 sec, abd is distended and tender with palpation, worse in the lower quadrants, bowel sounds are present and normoactive x4, pt skin sallow warm dry. Physician History: 43 y/o white male well known to our ED. pt has alcoholic cirrhosis and recurrent ascites. he undergoes frequent paracenteses. typical once a week. pt was seen here 6 days ago, sent to [facility] that evening, admitted, and on Sunday, Nov 18, 2018, and took 10.5 liters peritoneal off intraabdominally. pt began having some abd pain this afternoon and he felt if he received injectable pain meds, he could get to Sunday when his next paracentisis will be scheduled. he does not want admission or an extensive workup. i feel this is reasonable. we know him and his condition well and his workup have revealed only reaccumulation of his ascites. he is clinically much improved compared to his last visit 6 days ago. Timing/Duration: gradual onset, other (chronic) Abdominal Pain Onset Location: generalized abdomen Pain Radiation: no radiation Severity of Pain-Max: moderate Severity of Pain-Current: mild Modifying Factors: Improves With: vomiting (once) Previous symptoms: same symptoms as today Allergies/Adverse Reactions: tramadol Allergy (Mild, Verified 11/23/18 16:25) aspirin Allergy (Verified 11/23/18 16:25) bleeding hydromorphone [From Dilaudid] Adverse Reaction (Verified 11/23/18 16:25) TRIAZADONE Adverse Reaction (Mild, Uncoded 11/23/18 16:25) Nausea Home Medications: Furosemide 40 mg PO BID 11/18/18 [History] Lactulose 10 gm/15 ml [Enulose 10 GM/15 ML] 40 ml PO BID 11/18/18 [History ] Spironolactone 100 mg PO BID 11/18/18 [History] Hx Tetanus, Diphtheria Vaccination/Date Given: Yes Hx Influenza Vaccination/Date Given: No Hx Pneumococcal Vaccination/Date Given: No Immunizations Up to Date: Yes - Review of Systems Constitutional: No Symptoms Eyes: No Symptoms Ears, Nose, & Throat: No Symptoms Respiratory: No Symptoms Cardiac: No Symptoms Abdominal/Gastrointestinal: Abdominal Pain, Nausea, Vomiting, Other (mild abd distension) Genitourinary Symptoms: No Symptoms Musculoskeletal: No Symptoms Skin: No Symptoms Neurological: No Symptoms Psychological: No Symptoms Endocrine: No Symptoms Hematologic/Lymphatic: No Symptoms Immunological/Allergic: No Symptoms All Other Systems: Reviewed and Negative - Past Medical History Pertinent Past Medical History: Yes Neurological History: No Pertinent History ENT History: No Pertinent History Cardiac History: No Pertinent History Respiratory History: No Pertinent History Endocrine Medical History: Diabetes Type II Musculoskeletal History: No Pertinent History GI Medical History: No Pertinent History History: No Pertinent History Psycho-Social History: No Pertinent History Male Reproductive Disorders: No Pertinent History Other Medical History: GOUTY ARTHRITIS, hep c. liver failure - Past Surgical History Past Surgical History: Yes Neuro Surgical History: No Pertinent History Cardiac: No Pertinent History Respiratory: No Pertinent History Gastrointestinal: No Pertinent History Genitourinary: No Pertinent History Musculoskeletal: No Pertinent History Male Surgical History: No Pertinent History Other Surgical History: INGUINAL ABSCESS I&D. paracentesis Nov 2018 - Social History Smoking Status: Current every day smoker How long have you smoked: 30 years Exposure to second hand smoke: Yes Drug Use: none Patient Lives Alone: No Significant Family History: heart disease, diabetes - Nursing Vital Signs Nursing Vital Signs: Initial Vital Signs Temperature 98.0 F 11/23/18 16:07 Pulse Rate 112 H 11/23/18 16:07 Respiratory Rate 20 11/23/18 16:07 Blood Pressure 131/91 11/23/18 16:07 O2 Sat by Pulse Oximetry 98 11/23/18 16:07 Pain Scale Pain Intensity 9 - Physical Exam General Appearance: no apparent distress, alert, anxiety Eye Exam: PERRL/EOMI Ears, Nose, Throat Exam: normal ENT inspection, moist mucous membranes Neck Exam: normal inspection, non-tender, supple, full range of motion Respiratory Exam: normal breath sounds, lungs clear, airway intact, No chest tenderness, No respiratory distress, No accessory muscle use, No rhonchi, No wheezing, No stridor Cardiovascular Exam: regular rate/rhythm, normal heart sounds, normal peripheral pulses Gastrointestinal/Abdomen Exam: normal bowel sounds, tenderness (mild diffuse), distention (mild comparatively for him), No guarding, No rebound Rectal Exam: not done Back Exam: normal inspection, normal range of motion, No CVA tenderness, No vertebral tenderness Extremity Exam: normal inspection, normal range of motion, pelvis stable Neurologic Exam: alert, oriented x 3, cooperative, 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
[2018-11-23] MEDS ORDERED: MORPHINE SULFATE 10 MG/ML IM ONE (16:46)
[2018-11-23] MEDS ORDERED: Phenergan 25 MG INJ IM ONE (16:46)
[2018-11-23] MEDS ORDERED: Phenergan 25 MG INJ ONE (16:50)
[2018-11-23] MEDS ORDERED: MORPHINE SULFATE 10 MG/ML ONE (16:50)
[2018-11-23] MEDS ORDERED: Zofran 4 MG/2 ML VIAL IV ONE (16:59)
[2018-11-23] MEDS ORDERED: MORPHINE SULFATE 10 MG/ML IV ONE (17:01)
[2018-11-23] MEDS ORDERED: Zofran 4 MG/2 ML VIAL ONE (17:02)
[2018-11-23 17:25] VITALS: BP 124/87
[2018-11-23 17:35] VITALS: PULSE 110; O2SAT 99
== END 2018-11-23 17:34 | disposition home or self-care (01) ==
LOC: ED 16:02
DX: K74.60 Unspecified cirrhosis of liver (principal); R10.9 Unspecified abdominal pain; G89.29 Other chronic pain; E11.9 Type 2 diabetes mellitus without complications; M10.9 Gout, unspecified; B19.20 Unspecified viral hepatitis C without hepatic coma; Z79.899 Other long term (current) drug therapy
CPT/HCPCS: 36000; 96374; 96375; 99284; J2270; J2405; J2550

== ENCOUNTER 2018-11-29 21:46 | Emergency (ER) | payer OTHER ==
[2018-11-29] MEDS ORDERED: Sodium Chloride 0.9% 1000 ML 1,000 ML IV SCH (22:15)
[2018-11-29] MEDS ORDERED: Zofran 4 MG/2 ML VIAL IV ONE (22:15)
[2018-11-29] MEDS ORDERED: MORPHINE SULFATE 2 MG INJ IV ONE (22:15)
[2018-11-29] MEDS ORDERED: Zofran 4 MG/2 ML VIAL ONE (22:22)
[2018-11-29] MEDS ORDERED: MORPHINE SULFATE 2 MG INJ ONE (22:22)
[2018-11-29] MEDS ORDERED: Sodium Chloride 0.9% 1000 ML 1,000 ML ONE (22:22)
--- NOTE | 2018-11-29 22:29 | ERPHSYRPT ---
- History of Present Illness Time Seen by Provider: 11/29/18 22:05 Patient Subjective Stated Complaint: pt is alert and oriented. pt is ambulatory with a steady gait. pt comes in with c/o sob. pt has a very large, very distended, ascitic abdomen. pt abdomen is firm and tender all over. pt bowel sounds present x4, distant. lung sounds clear. Triage Nursing Assessment: see above Physician History: PATIENT WITH A HISTORY OF ALCOHOLIC CIRRHOSIS, MASSIVE ASCITES COMPLAINS OF WEEKLY ABDOMINAL PARACENTESIS AT [facility], UNDER PARACENTESIS 5 DAYS AGO AND LAST WEEK. HAS UNDERWENT 14 PARACENTESIS OVER THE PAST FEW MONTHS. PATIENT NOW COMPLAINS OF MARKED ABDOMINAL DISTENTION, ABDOMINAL PAIN ASSOCIATED WITH EMESIS X 2 AND DYSPNEA. Timing/Duration: day(s) Activities at Onset: none Quality: sharpness, stabbing Abdominal Pain Onset Location: generalized abdomen Pain Radiation: no radiation Severity of Pain-Max: severe Severity of Pain-Current: severe Modifying Factors: Improves With: other (MARKED ABDOMINAL DISTENTION) Associated Symptoms: nausea, vomiting Previous symptoms: same symptoms as today Allergies/Adverse Reactions: tramadol Allergy (Mild, Verified 11/23/18 16:25) aspirin Allergy (Verified 11/23/18 16:25) bleeding hydromorphone [From Dilaudid] Adverse Reaction (Verified 11/23/18 16:25) TRIAZADONE Adverse Reaction (Mild, Uncoded 11/23/18 16:25) Nausea Home Medications: Furosemide 40 mg PO BID 11/18/18 [History] Lactulose 10 gm/15 ml [Enulose 10 GM/15 ML] 40 ml PO BID 11/18/18 [History ] Spironolactone 100 mg PO BID 11/18/18 [History] Morphine Sulfate 15 mg PO Q12H PRN PRN 11/29/18 [History] Ondansetron ODT 4 MG [Zofran Odt 4 mg] 4 mg PO STAT 11/29/18 [History] Hx Tetanus, Diphtheria Vaccination/Date Given: Yes Hx Influenza Vaccination/Date Given: No Hx Pneumococcal Vaccination/Date Given: Yes Immunizations Up to Date: Yes - Review of Systems Constitutional: No Fever, No Chills Eyes: No Symptoms Ears, Nose, & Throat: No Symptoms Respiratory: No Cough, No Dyspnea Cardiac: No Chest Pain, No Edema, No Syncope Abdominal/Gastrointestinal: Abdominal Pain, Nausea, Vomiting, No Diarrhea Genitourinary Symptoms: No Symptoms, No Dysuria Musculoskeletal: No Symptoms, No Back Pain, No Neck Pain Skin: No Rash Neurological: No Dizziness, No Focal Weakness, No Sensory Changes Psychological: No Symptoms Endocrine: No Symptoms Hematologic/Lymphatic: No Symptoms All Other Systems: Reviewed and Negative - Past Medical History Pertinent Past Medical History: Yes Neurological History: No Pertinent History ENT History: No Pertinent History Cardiac History: No Pertinent History Respiratory History: No Pertinent History Endocrine Medical History: Diabetes Type II Musculoskeletal History: No Pertinent History GI Medical History: No Pertinent History History: No Pertinent History Psycho-Social History: No Pertinent History Male Reproductive Disorders: No Pertinent History Other Medical History: GOUTY ARTHRITIS, hep c. liver failure - Past Surgical History Past Surgical History: Yes Neuro Surgical History: No Pertinent History Cardiac: No Pertinent History Respiratory: No Pertinent History Gastrointestinal: No Pertinent History Genitourinary: No Pertinent History Musculoskeletal: No Pertinent History Male Surgical History: No Pertinent History Other Surgical History: INGUINAL ABSCESS I&D. paracentesis Nov 2018 - Social History Smoking Status: Current every day smoker How long have you smoked: 30 years Exposure to second hand smoke: Yes Drug Use: none Patient Lives Alone: No Significant Family History: heart disease, diabetes - Nursing Vital Signs Nursing Vital Signs: Initial Vital Signs Temperature 98.0 F 11/29/18 21:49 Pulse Rate 119 H 11/29/18 21:49 Respiratory Rate 20 11/29/18 21:49 Blood Pressure 123/96 11/29/18 21:49 O2 Sat by Pulse Oximetry 100 11/29/18 21:49 Pain Scale Pain Intensity 9 - Physical Exam General Appearance: mild distress Eye Exam: PERRL/EOMI Ears, Nose, Throat Exam: normal ENT inspection Neck Exam: normal inspection Respiratory Exam: normal breath sounds Cardiovascular Exam: regular rate/rhythm, normal heart sounds, tachycardia Gastrointestinal/Abdomen Exam: soft, normal bowel sounds, tenderness, distention (WITH ASCITES TO THE XYPHOID PROCESS), other (MARKED ABDOMINAL DISTENTION WITH MASSIVE ASCITES WITH TENDERNESS) Extremity Exam: normal inspection, normal range of motion Neurologic Exam: alert, oriented x 3, cooperative, shake cutter II-XII nml as tested Skin Exam: normal color SpO2 Interpretation: normal SpO2: 100 - Radiology Exams Chest X-ray Interpretation: Interpreted by me, Reviewed by me, No Infiltrates ( ELEVATION RIGHT HEMIDIAPHRAM) Ordered Tests: Active Orders 24 hr Category Date Time Status Clean Catch Urine Specimen STAT Care 11/29/18 22:15 Active EKG-ER Only STAT Care 11/29/18 22:18 Active IV Insertion STAT Care 11/29/18 22:15 Active Oxygen-ED Only Nasal Cannula 2 lpm Care 11/29/18 22:18 Active CHEST 1 VIEW (PORTABLE) Stat Exams 11/29/18 22:19 Taken AMYLASE Stat Lab 11/29/18 22:30 Completed BLOOD CULTURE Stat Lab 11/29/18 22:16 Ordered CBC W DIFF Stat Lab 11/29/18 22:30 Completed CMP Stat Lab 11/29/18 22:30 Completed LIPASE Stat Lab 11/29/18 22:30 Completed Lactic Acid Stat Lab 11/29/18 22:40 Results PT INR [PROTIME WITH INR] Stat Lab 11/29/18 22:30 Completed TROPONIN Q3H Lab 11/29/18 22:30 Completed TROPONIN Q3H Lab 11/30/18 01:30 Ordered TROPONIN Q3H Lab 11/30/18 04:30 Ordered TROPONIN Q3H Lab 11/30/18 07:30 Ordered TROPONIN Q3H Lab 11/30/18 10:30 Ordered UA W/RFX UR CULTURE Stat Lab 11/29/18 22:16 Uncollected Medication Summary Generic Name Dose Route Start Last Admin Trade Name Freq PRN Reason Stop Dose Admin Sodium Chloride 1,000 mls @ 10 mls/hr 11/29/18 22:15 11/29/18 22:29 Sodium Chloride 0.9% 1000 Ml IV 12/29/18 22:14 10 mls/hr .Q24H GUILHERME Administration Discontinued Medications Generic Name Dose Route Start Last Admin Trade Name Freq PRN Reason Stop Dose Admin Morphine Sulfate 2 mg 11/29/18 22:15 11/29/18 22:29 Morphine Sulfate 2 Mg Inj IV 11/29/18 22:16 2 mg STAT ONE Administration Morphine Sulfate Confirm 11/29/18 22:22 Morphine Sulfate 2 Mg Inj Administered 11/29/18 22:23 Dose 2 mg .ROUTE .STK-MED ONE Ondansetron HCl 4 mg 11/29/18 22:15 11/29/18 22:29 Zofran 4 Mg/2 Ml Vial IV 11/29/18 22:16 4 mg STAT ONE Administration Ondansetron HCl Confirm 11/29/18 22:22 Zofran 4 Mg/2 Ml Vial Administered 11/29/18 22:23 Dose 4 mg .ROUTE .STK-MED ONE Lab/Rad Data: Laboratory Result Diagrams 11/29/18 22:30 11/29/18 22:30 Laboratory Results 11/29/18 11/29/18 11/29/18 Range/Units 22:40 22:30 22:30 WBC (4.0-10.5) K/mm3 RBC (4.1-5.6) M/mm3 Hgb (12.5-18.0) gm/dl Hct (42-50) % MCV (78-100) fl MCH (26-32) pg MCHC (32-36) g/dl RDW (11.5-14.0) % Plt Count (150-450) K/mm3 MPV (6-9.5) fl Gran % (36.0-66.0) % Eos # (Auto) (0-0.5) Absolute Lymphs (auto) (1.0-4.6) Absolute Monos (auto) (0.0-1.3) Lymphocytes % (24.0-44.0) % Monocytes % (0.0-12.0) % Eosinophils % (0.00-5.0) % Basophils % (0.0-0.4) % Absolute Granulocytes (1.4-6.9) Basophils # (0-0.4) PT 18.5 H (8.83-12.87) SECONDS INR 1.58 (0.8-3.0) Sodium (137-145) mmol/L Potassium (3.5-5.1) mmol/L Chloride (98-107) mmol/L Carbon Dioxide (22-30) mmol/L Anion Gap (5-15) MEQ/L BUN (9-20) mg/dL Creatinine (0.66-1.25) mg/dL Estimated GFR ML/MIN Glucose (74-106) mg/dL Lactic Acid 2.5 H (0.4-2.0) Calcium (8.4-10.2) mg/dL Total Bilirubin (0.2-1.3) mg/dL AST (17-59) U/L ALT (0-50) U/L Alkaline Phosphatase (38-126) U/L Ammonia 24 (9-30) umol/L Troponin I (0.000-0.034) ng/mL Serum Total Protein (6.3-8.2) g/dL Albumin (3.5-5.0) g/dL Amylase (30-110) U/L Lipase (23-300) U/L 11/29/18 11/29/18 11/29/18 Range/Units 22:30 22:30 22:30 WBC 3.8 L (4.0-10.5) K/mm3 RBC 3.24 L (4.1-5.6) M/mm3 Hgb 11.8 L (12.5-18.0) gm/dl Hct 33.8 L (42-50) % MCV 104.3 H (78-100) fl MCH 36.4 H (26-32) pg MCHC 34.9 (32-36) g/dl RDW 14.9 H (11.5-14.0) % Plt Count 91 L (150-450) K/mm3 MPV 10.3 H (6-9.5) fl Gran % 67.8 H (36.0-66.0) % Eos # (Auto) 0.12 (0-0.5) Absolute Lymphs (auto) 0.61 L (1.0-4.6) Absolute Monos (auto) 0.47 (0.0-1.3) Lymphocytes % 16.2 L (24.0-44.0) % Monocytes % 12.5 H (0.0-12.0) % Eosinophils % 3.2 (0.00-5.0) % Basophils % 0.3 (0.0-0.4) % Absolute Granulocytes 2.56 (1.4-6.9) Basophils # 0.01 (0-0.4) PT (8.83-12.87) SECONDS INR (0.8-3.0) Sodium 138 (137-145) mmol/L Potassium 3.7 (3.5-5.1) mmol/L Chloride 105 (98-107) mmol/L Carbon Dioxide 25 (22-30) mmol/L Anion Gap 11.5 (5-15) MEQ/L BUN 13 (9-20) mg/dL Creatinine 0.85 (0.66-1.25) mg/dL Estimated GFR > 60.0 ML/MIN Glucose 275 H (74-106) mg/dL Lactic Acid (0.4-2.0) Calcium 8.3 L (8.4-10.2) mg/dL Total Bilirubin 2.30 H (0.2-1.3) mg/dL AST 68 H (17-59) U/L ALT 38 (0-50) U/L Alkaline Phosphatase 205 H (38-126) U/L Ammonia (9-30) umol/L Troponin I < 0.012 (0.000-0.034) ng/mL Serum Total Protein 8.0 (6.3-8.2) g/dL Albumin 2.9 L (3.5-5.0) g/dL Amylase 65 (30-110) U/L Lipase 233 (23-300) U/L - Progress Progress Note: 11/29/18 22:29 IV NORMAL SALINE 10ML/HR, ZOFRAN 4MG, MORPHINE 2MG IV Discussed with : Other (DISCUSSED WITH DR GUO AT 2320 OF [facility] ACCEPTS TRANSFER [facility]IA [facility]) - Departure Time of Disposition: 23:37 Departure Disposition: Transfer Clinical Impression: ALCOHOLIC CIRRHOSIS, MASSIVE ASCITIES Condition: Stable Critical Care Time: No Referrals: DOCTOR,NO FAMILY [Primary Care Provider] -
[2018-11-29 22:39] VITALS: BP 110/80; PULSE 104
[2018-11-29 22:45] LABS: Lactic Acid 2.5 (0.4-2.0)
[2018-11-29 22:55] LABS: BASOPHIL % 0.3 % (0.0-0.4); Basophil (Absolute #) 0.01 (0-0.4); Eosinophil % 3.2 % (0.00-5.0); Eosinophil (Absolute #) 0.12 (0-0.5); Granulocyte Absolute (ANC) 2.56 (1.4-6.9); Granulocytes % 67.8 % (36.0-66.0); Hematocrit 33.8 % (42-50); Hemoglobin 11.8 gm/dl (12.5-18.0); INR 1.58 (0.8-3.0); Lymphocyte (Absolute #) 0.61 (1.0-4.6); Lymphocytes % 16.2 % (24.0-44.0); Mean Cell Volume 104.3 fl (78-100); Mean Corpuscular Hemoglobin 36.4 pg (26-32); Mean Corpuscular Hgb Concent. 34.9 g/dl (32-36); Mean Platelet Volume 10.3 fl (6-9.5); Monocyte (Absolute #) 0.47 (0.0-1.3); Monocytes % 12.5 % (0.0-12.0); PROTIME 18.5 SECONDS (8.83-12.87); Platelet Count 91 K/mm3 (150-450); Red Blood Count 3.24 M/mm3 (4.1-5.6); Red Cell Distribution Width 14.9 % (11.5-14.0); White Blood Count 3.8 K/mm3 (4.0-10.5)
[2018-11-29 23:00] LABS: ALBUMIN 2.9 g/dL (3.5-5.0); ALKALINE PHOSPHATASE 205 U/L (38-126); AMYLASE 65 U/L (30-110); ANION GAP 11.5 MEQ/L (5-15); BLOOD UREA NITROGEN 13 mg/dL (9-20); CHLORIDE 105 mmol/L (98-107); Calcium 8.3 mg/dL (8.4-10.2); Carbon Dioxide 25 mmol/L (22-30); Creatinine 1 0.85 mg/dL (0.66-1.25); Glucose 275 mg/dL (74-106); LIPASE 233 U/L (23-300); Potassium 3.7 mmol/L (3.5-5.1); SGOT/AST 68 U/L (17-59); SGPT/ALT 38 U/L (0-50); SODIUM 138 mmol/L (137-145)
[2018-11-29 23:21] VITALS: O2SAT 100
[2018-11-30 01:03] LABS: Slide Review 1 YES
--- NOTE | 2018-11-30 07:37 | XRAY ---
Indication: Dyspnea. Comparison: October 03, 2013. Portable chest markedly underinflated crowding the lung bases. Stable right midlung calcified granuloma. Remaining heart and lungs unremarkable. Bony thorax intact. Impression: Nonacute underinflated chest.
== END 2018-11-29 23:43 | disposition short-term general hospital (02) ==
LOC: ED 21:46
DX: K70.31 Alcoholic cirrhosis of liver with ascites (principal); R11.2 Nausea with vomiting, unspecified; R10.9 Unspecified abdominal pain; Z79.899 Other long term (current) drug therapy
CPT/HCPCS: 36000; 36415; 71045; 80053; 82140; 82150; 83605; 83690; 84484; 85025; 85610; 87040; 93005; 96360; 96374; 96375; 99285; J2270; J2405

== ENCOUNTER 2018-12-06 00:51 | Emergency (ER) | payer OTHER ==
[2018-12-06] MEDS ORDERED: Zofran 4 MG/2 ML VIAL IV ONE (01:06)
[2018-12-06] MEDS ORDERED: Hydromorphone 1 mg/ml Ampule IV ONE (01:06)
[2018-12-06] MEDS ORDERED: Zofran 4 MG/2 ML VIAL ONE (01:11)
[2018-12-06] MEDS ORDERED: Hydromorphone 1 mg/ml Ampule ONE (01:12)
[2018-12-06 01:13] VITALS: PULSE 104; O2SAT 100
[2018-12-06 01:27] LABS: BASOPHIL % 0.5 % (0.0-0.4); Basophil (Absolute #) 0.02 (0-0.4); Eosinophil % 2.9 % (0.00-5.0); Eosinophil (Absolute #) 0.11 (0-0.5); Granulocyte Absolute (ANC) 2.67 (1.4-6.9); Granulocytes % 70.1 % (36.0-66.0); Hematocrit 29.9 % (42-50); Hemoglobin 10.8 gm/dl (12.5-18.0); Lymphocyte (Absolute #) 0.57 (1.0-4.6); Mean Cell Volume 102.7 fl (78-100); Mean Corpuscular Hemoglobin 37.1 pg (26-32); Mean Corpuscular Hgb Concent. 36.1 g/dl (32-36); Mean Platelet Volume 9.9 fl (6-9.5); Monocyte (Absolute #) 0.44 (0.0-1.3); Monocytes % 11.5 % (0.0-12.0); Platelet Count 85 K/mm3 (150-450); Red Blood Count 2.91 M/mm3 (4.1-5.6); Red Cell Distribution Width 13.8 % (11.5-14.0); White Blood Count 3.8 K/mm3 (4.0-10.5)
[2018-12-06 01:39] LABS: ALBUMIN 2.7 g/dL (3.5-5.0); ALKALINE PHOSPHATASE 156 U/L (38-126); AMYLASE 54 U/L (30-110); ANION GAP 9.2 MEQ/L (5-15); BLOOD UREA NITROGEN 22 mg/dL (9-20); CHLORIDE 104 mmol/L (98-107); Calcium 8.5 mg/dL (8.4-10.2); Carbon Dioxide 26 mmol/L (22-30); Creatinine 1 0.71 mg/dL (0.66-1.25); Glucose 249 mg/dL (74-106); LIPASE 179 U/L (23-300); Potassium 4.3 mmol/L (3.5-5.1); SGOT/AST 53 U/L (17-59); SGPT/ALT 31 U/L (0-50); SODIUM 135 mmol/L (137-145); Total Protein 7.5 g/dL (6.3-8.2)
--- NOTE | 2018-12-06 01:39 | ERPHSYRPT ---
- History of Present Illness Time Seen by Provider: 12/06/18 01:15 Historian: patient, family Exam Limitations: no limitations Patient Subjective Stated Complaint: Left sided abdominal pain Triage Nursing Assessment: Patient ambulated back to ED and transferred self to bed. Patient A+O X 3. Patient's skin jaundice, warm and dry. Patient states he is having left sided abdominal pain that is constantly throbbing 05/24. Patient just had paracentesis Sunday12/03/18 at [facility]. Patient's abdomen round and hard with positive bs X 4. Patient states his bowel's are moving well. Lungs clear a/p demetra. Physician History: 43 y/o white male with h/o of recurrent abd pain and recurrent ascites, well known to me and our ED, presenting with recurrent abd pain on left side in area of recent paracentesis. pt undergoes paracentesis at least once a week at [facility]. they did not remove as much fluid as before and he feels more pressure now. no n/v/d. we have done an extensive work up on him often. today, since pt not in significant distress, will check basic labs, give a single iv dose of pain medication and antiemetic then send pt home. pt and spouse agree with this plan. pt is not allergic to dilaudid. he has had it several times. Timing/Duration: intermittent Activities at Onset: none Quality: aching, pressure Abdominal Pain Onset Location: generalized abdomen Pain Radiation: no radiation Severity of Pain-Max: moderate Severity of Pain-Current: moderate Modifying Factors: Worsens With: vomiting Associated Symptoms: No back, No chest pain, No diaphoresis, No diarrhea, No headache, No nausea, No shortness of breath Previous symptoms: same symptoms as today, recently seen, recent hospitalization , recently treated Allergies/Adverse Reactions: tramadol Allergy (Mild, Verified 12/06/18 01:01) aspirin Allergy (Verified 12/06/18 01:01) bleeding hydromorphone [From Dilaudid] Adverse Reaction (Verified 12/06/18 01:01) TRIAZADONE Adverse Reaction (Mild, Uncoded 12/06/18 01:01) Nausea Home Medications: Furosemide 40 mg PO BID 11/18/18 [History] Lactulose 10 gm/15 ml [Enulose 10 GM/15 ML] 40 ml PO BID 11/18/18 [History ] Spironolactone 100 mg PO BID 11/18/18 [History] Ondansetron ODT 4 MG [Zofran Odt 4 mg] 4 mg PO STAT 11/29/18 [History] Hx Tetanus, Diphtheria Vaccination/Date Given: Yes Hx Influenza Vaccination/Date Given: No Hx Pneumococcal Vaccination/Date Given: Yes Immunizations Up to Date: Yes - Review of Systems Constitutional: No Symptoms Eyes: No Symptoms Ears, Nose, & Throat: No Symptoms Respiratory: No Symptoms Cardiac: No Symptoms Abdominal/Gastrointestinal: Abdominal Pain Genitourinary Symptoms: No Symptoms Musculoskeletal: No Symptoms Skin: No Symptoms Neurological: No Symptoms Psychological: No Symptoms Endocrine: No Symptoms Hematologic/Lymphatic: No Symptoms Immunological/Allergic: No Symptoms All Other Systems: Reviewed and Negative - Past Medical History Pertinent Past Medical History: Yes Neurological History: No Pertinent History ENT History: No Pertinent History Cardiac History: No Pertinent History Respiratory History: No Pertinent History Endocrine Medical History: Diabetes Type II Musculoskeletal History: No Pertinent History GI Medical History: No Pertinent History History: No Pertinent History Psycho-Social History: No Pertinent History Male Reproductive Disorders: No Pertinent History Other Medical History: GOUTY ARTHRITIS, hep c. liver failure - Past Surgical History Past Surgical History: Yes Neuro Surgical History: No Pertinent History Cardiac: No Pertinent History Respiratory: No Pertinent History Gastrointestinal: No Pertinent History Genitourinary: No Pertinent History Musculoskeletal: No Pertinent History Male Surgical History: No Pertinent History Other Surgical History: INGUINAL ABSCESS I&D. paracentesis Nov 2018 - Social History Smoking Status: Current every day smoker How long have you smoked: 30 years Exposure to second hand smoke: Yes Drug Use: none Patient Lives Alone: No Significant Family History: heart disease, diabetes - Nursing Vital Signs Nursing Vital Signs: Initial Vital Signs Temperature 98.2 F 12/06/18 01:03 Pulse Rate 104 H 12/06/18 01:03 Respiratory Rate 18 12/06/18 01:03 Blood Pressure 123/87 12/06/18 01:03 O2 Sat by Pulse Oximetry 100 12/06/18 01:03 Pain Scale Pain Intensity 8 - Physical Exam General Appearance: mild distress, alert Eye Exam: PERRL/EOMI, photophobia Ears, Nose, Throat Exam: normal ENT inspection, moist mucous membranes Neck Exam: normal inspection, non-tender, supple, full range of motion Respiratory Exam: normal breath sounds, lungs clear, airway intact, No chest tenderness, No respiratory distress Cardiovascular Exam: regular rate/rhythm, normal heart sounds, normal peripheral pulses Gastrointestinal/Abdomen Exam: tenderness (mild diffuse), distention, other ( ascites diffuse), No guarding, No rebound Rectal Exam: not done Back Exam: normal inspection, normal range of motion, No CVA tenderness, No vertebral tenderness Extremity Exam: normal inspection, normal range of motion, pelvis stable Neurologic Exam: alert, oriented x 3, cooperative, scrap separator II-XII nml as tested Skin Exam: normal color, warm Lymphatic Exam: No adenopathy SpO2 Interpretation: normal SpO2: 100 O2 Delivery: Room Air Ordered Tests: Active Orders 24 hr Category Date Time Status IV Insertion STAT Care 12/06/18 01:06 Active AMYLASE Stat Lab 12/06/18 01:15 Received CBC W DIFF Stat Lab 12/06/18 01:15 Received CMP Stat Lab 12/06/18 01:15 Received LIPASE Stat Lab 12/06/18 01:15 Received Medication Summary Discontinued Medications Generic Name Dose Route Start Last Admin Trade Name Freq PRN Reason Stop Dose Admin Hydromorphone HCl 1 mg 12/06/18 01:06 12/06/18 01:17 Hydromorphone 1 Mg/Ml Ampule IV 12/06/18 01:07 1 mg STAT ONE Administration Hydromorphone HCl Confirm 12/06/18 01:12 Hydromorphone 1 Mg/Ml Ampule Administered 12/06/18 01:13 Dose 1 mg .ROUTE .STK-MED ONE Ondansetron HCl 4 mg 12/06/18 01:06 12/06/18 01:15 Zofran 4 Mg/2 Ml Vial IV 12/06/18 01:07 4 mg STAT ONE Administration Ondansetron HCl Confirm 12/06/18 01:11 Zofran 4 Mg/2 Ml Vial Administered 12/06/18 01:12 Dose 4 mg .ROUTE .STK-MED ONE - Progress Progress: improved Counseled pt/family regarding: lab results, diagnosis, need for follow-up - Departure Time of Disposition: 01:43 Departure Disposition: Home Clinical Impression: Ascites due to alcoholic cirrhosis, Cirrhosis, Recurrent abdominal pain Condition: Stable Critical Care Time: No Referrals: DOCTOR,NO FAMILY [Primary Care Provider] - Additional Instructions: follow up with Jackelyn preciado later today for evaluation of repeat paracentesis.
[2018-12-06 02:18] VITALS: BP 113/75
[2018-12-06 03:29] LABS: Slide Review 1 YES
== END 2018-12-06 02:25 | disposition home or self-care (01) ==
LOC: ED 00:51
DX: K70.31 Alcoholic cirrhosis of liver with ascites (principal); R10.9 Unspecified abdominal pain; E11.9 Type 2 diabetes mellitus without complications; M10.9 Gout, unspecified; B19.20 Unspecified viral hepatitis C without hepatic coma
CPT/HCPCS: 36000; 36415; 80053; 82150; 83690; 85025; 96374; 96375; 99284; J1170; J2405

== ENCOUNTER 2018-12-07 16:01 | Emergency (ER) | payer OTHER ==
[2018-12-07] MEDS ORDERED: ZOFRAN ODT 4 MG PO ONE (16:25)
[2018-12-07] MEDS ORDERED: Sodium Chloride 0.9% 1000 ML 1,000 ML IV SCH (16:30)
[2018-12-07] MEDS ORDERED: ZOFRAN ODT 4 MG ONE (16:30)
[2018-12-07] MEDS ORDERED: Sodium Chloride 0.9% 1000 ML 1,000 ML ONE (16:31)
[2018-12-07 16:53] LABS: BASOPHIL % 0.3 % (0.0-0.4); Basophil (Absolute #) 0.01 (0-0.4); Eosinophil % 2.5 % (0.00-5.0); Eosinophil (Absolute #) 0.08 (0-0.5); Granulocyte Absolute (ANC) 2.38 (1.4-6.9); Granulocytes % 74.4 % (36.0-66.0); Hematocrit 31.5 % (42-50); Hemoglobin 11.1 gm/dl (12.5-18.0); Lymphocyte (Absolute #) 0.38 (1.0-4.6); Lymphocytes % 11.9 % (24.0-44.0); Mean Cell Volume 104.7 fl (78-100); Mean Corpuscular Hgb Concent. 35.2 g/dl (32-36); Mean Platelet Volume 10.2 fl (6-9.5); Monocyte (Absolute #) 0.35 (0.0-1.3); Monocytes % 10.9 % (0.0-12.0); Platelet Count 81 K/mm3 (150-450); Red Blood Count 3.01 M/mm3 (4.1-5.6); Red Cell Distribution Width 13.9 % (11.5-14.0); White Blood Count 3.2 K/mm3 (4.0-10.5)
[2018-12-07 16:57] LABS: INR 1.63 (0.8-3.0); PROTIME 19.1 SECONDS (8.83-12.87)
[2018-12-07 16:59] LABS: PTT 34.1 SECONDS (24.1-36.1)
[2018-12-07 17:01] LABS: ALBUMIN 2.5 g/dL (3.5-5.0); ALKALINE PHOSPHATASE 164 U/L (38-126); AMYLASE 54 U/L (30-110); ANION GAP 9.2 MEQ/L (5-15); BLOOD UREA NITROGEN 22 mg/dL (9-20); CHLORIDE 104 mmol/L (98-107); Calcium 8.2 mg/dL (8.4-10.2); Carbon Dioxide 26 mmol/L (22-30); Creatinine 1 0.91 mg/dL (0.66-1.25); Glucose 250 mg/dL (74-106); LIPASE 259 U/L (23-300); Potassium 4.7 mmol/L (3.5-5.1); SGOT/AST 59 U/L (17-59); SGPT/ALT 36 U/L (0-50); SODIUM 135 mmol/L (137-145); Total Protein 7.2 g/dL (6.3-8.2)
[2018-12-07 17:17] LABS: Mean Corpuscular Hemoglobin 36.8 pg (26-32)
--- NOTE | 2018-12-07 17:20 | ERPHSYRPT ---
- History of Present Illness Time Seen by Provider: 12/07/18 16:05 Historian: patient, family, old records Exam Limitations: no limitations Patient Subjective Stated Complaint: pt here for abd pain that is chronic but worse today after eating at [employer], pt has chronic liver disease and is due sunday for a paracentisis. Triage Nursing Assessment: pt alert, resp easy, skin warm,dry,juadice in color which is normal for him,abd large, distended and firm Physician History: patient with hx of endstage liver disease with ascites; tapped last Sunday; abdomen distending again with pain; Nausea but no vomiting; BMs and voding ok; no fever; no jaundice- Doctors at [facility] for his liver disease Timing/Duration: today (worse), gradual onset, worse Activities at Onset: none Quality: pressure Abdominal Pain Onset Location: generalized abdomen Pain Radiation: no radiation Severity of Pain-Max: moderate Severity of Pain-Current: moderate Modifying Factors: Improves With: nothing Associated Symptoms: nausea, No chest pain, No diarrhea, No fever/chills, No headache, No shortness of breath, No syncope, No vomiting Previous symptoms: same symptoms as today, recently seen, recently treated Allergies/Adverse Reactions: tramadol Allergy (Mild, Verified 12/07/18 16:15) aspirin Allergy (Verified 12/07/18 16:15) bleeding hydromorphone [From Dilaudid] Adverse Reaction (Verified 12/07/18 16:15) TRIAZADONE Adverse Reaction (Mild, Uncoded 12/07/18 16:15) Nausea Home Medications: Furosemide 40 mg PO BID 11/18/18 [History] Lactulose 10 gm/15 ml [Enulose 10 GM/15 ML] 40 ml PO BID 11/18/18 [History ] Spironolactone 100 mg PO BID 11/18/18 [History] Ondansetron ODT 4 MG [Zofran Odt 4 mg] 4 mg PO STAT 11/29/18 [History] Morphine Sulfate Ir 15 mg [Msir 15 mg] 15 mg BID 12/07/18 [History] Hx Tetanus, Diphtheria Vaccination/Date Given: Yes Hx Influenza Vaccination/Date Given: No Hx Pneumococcal Vaccination/Date Given: No Immunizations Up to Date: Yes - Review of Systems Constitutional: No Symptoms Eyes: No Symptoms Ears, Nose, & Throat: No Symptoms Respiratory: No Cough, No Dyspnea, No Wheezing Cardiac: No Chest Pain, No Palpitations, No Syncope Abdominal/Gastrointestinal: Abdominal Pain, Nausea, No Vomiting, No Diarrhea Genitourinary Symptoms: No Symptoms Musculoskeletal: No Symptoms Skin: No Symptoms Neurological: No Symptoms Psychological: No Symptoms Endocrine: No Symptoms Hematologic/Lymphatic: No Symptoms Immunological/Allergic: No Symptoms - Past Medical History Pertinent Past Medical History: Yes Neurological History: No Pertinent History ENT History: No Pertinent History Cardiac History: No Pertinent History Respiratory History: No Pertinent History Endocrine Medical History: Diabetes Type II Musculoskeletal History: No Pertinent History GI Medical History: No Pertinent History History: No Pertinent History Psycho-Social History: No Pertinent History Male Reproductive Disorders: No Pertinent History Other Medical History: GOUTY ARTHRITIS, hep c. liver failure - Past Surgical History Past Surgical History: Yes Neuro Surgical History: No Pertinent History Cardiac: No Pertinent History Respiratory: No Pertinent History Gastrointestinal: No Pertinent History Genitourinary: No Pertinent History Musculoskeletal: No Pertinent History Male Surgical History: No Pertinent History Other Surgical History: INGUINAL ABSCESS I&D. paracentesis Nov 2018 - Social History Smoking Status: Current every day smoker How long have you smoked: 30 years Exposure to second hand smoke: Yes Alcohol Use: None Drug Use: none Patient Lives Alone: No Significant Family History: heart disease, diabetes - Nursing Vital Signs Nursing Vital Signs: Initial Vital Signs Temperature 97.0 F 12/07/18 16:08 Pulse Rate 90 12/07/18 16:08 Respiratory Rate 22 12/07/18 16:08 Blood Pressure 134/83 12/07/18 16:08 O2 Sat by Pulse Oximetry 100 12/07/18 16:08 Pain Scale Pain Intensity 9 - Physical Exam General Appearance: mild distress, alert Eye Exam: PERRL/EOMI, eyes nml inspection, other (no jaundice) Ears, Nose, Throat Exam: normal ENT inspection, TMs normal, pharynx normal, moist mucous membranes Neck Exam: normal inspection, non-tender, supple, full range of motion, No meningismus, No JVD Respiratory Exam: normal breath sounds, lungs clear, airway intact, No chest tenderness, No respiratory distress Cardiovascular Exam: regular rate/rhythm, normal heart sounds, normal peripheral pulses, capillary refill <2 sec, No murmur, No edema Gastrointestinal/Abdomen Exam: normal bowel sounds, distention (moderate ascites - not tense ; ), hepatomegaly, No guarding, No rebound Rectal Exam: deferred Back Exam: normal inspection, normal range of motion, No CVA tenderness, No rash Extremity Exam: normal inspection, normal range of motion, No tonja's sign, No pedal edema Neurologic Exam: alert, oriented x 3, cooperative, roll finisher II-XII nml as tested, normal mood/affect, nml cerebellar function, nml station & gait Skin Exam: normal color, warm, dry, No rash, No petechiae, No cyanosis, No jaundice SpO2 Interpretation: normal SpO2: 96 O2 Delivery: Room Air - Course Nursing assessment & vital signs reviewed: Yes Ordered Tests: Active Orders 24 hr Category Date Time Status Clean Catch Urine Specimen STAT Care 12/07/18 16:16 Active IV Insertion STAT Care 12/07/18 16:16 Active Re-Check Vital Signs STAT Care 12/07/18 16:25 Active AMYLASE Stat Lab 12/07/18 16:43 Completed CBC W DIFF Stat Lab 12/07/18 16:43 Completed CMP Stat Lab 12/07/18 16:43 Completed LIPASE Stat Lab 12/07/18 16:43 Completed Lactic Acid Stat Lab 12/07/18 16:54 Completed PROTIME WITH INR Stat Lab 12/07/18 16:43 Completed PTT Stat Lab 12/07/18 16:43 Completed Medication Summary Generic Name Dose Route Start Last Admin Trade Name Freq PRN Reason Stop Dose Admin Hydromorphone HCl 1 mg 12/07/18 17:50 Hydromorphone 1 Mg/Ml Ampule IV 12/07/18 17:51 STAT ONE Sodium Chloride 1,000 mls @ 50 mls/hr 12/07/18 16:30 12/07/18 16:33 Sodium Chloride 0.9% 1000 Ml IV 01/06/19 16:29 50 mls/hr .Q20H GUILHERME Administration Discontinued Medications Generic Name Dose Route Start Last Admin Trade Name Freq PRN Reason Stop Dose Admin Ondansetron HCl 4 mg 12/07/18 16:25 12/07/18 16:34 Zofran Odt 4 Mg PO 12/07/18 16:26 4 mg STAT ONE Administration Ondansetron HCl Confirm 12/07/18 16:30 Zofran Odt 4 Mg Administered 12/07/18 16:31 Dose 4 mg .ROUTE .STK-MED ONE Lab/Rad Data: Laboratory Result Diagrams 12/07/18 16:43 12/07/18 16:43 Laboratory Results 12/07/18 12/07/18 12/07/18 Range/Units 16:54 16:43 16:43 WBC (4.0-10.5) K/mm3 RBC (4.1-5.6) M/mm3 Hgb (12.5-18.0) gm/dl Hct (42-50) % MCV (78-100) fl MCH (26-32) pg MCHC (32-36) g/dl RDW (11.5-14.0) % Plt Count (150-450) K/mm3 MPV (6-9.5) fl Gran % (36.0-66.0) % Eos # (Auto) (0-0.5) Absolute Lymphs (auto) (1.0-4.6) Absolute Monos (auto) (0.0-1.3) Lymphocytes % (24.0-44.0) % Monocytes % (0.0-12.0) % Eosinophils % (0.00-5.0) % Basophils % (0.0-0.4) % Absolute Granulocytes (1.4-6.9) Basophils # (0-0.4) PT 19.1 H (8.83-12.87) SECONDS INR 1.63 (0.8-3.0) APTT 34.1 (24.1-36.1) SECONDS Sodium (137-145) mmol/L Potassium (3.5-5.1) mmol/L Chloride (98-107) mmol/L Carbon Dioxide (22-30) mmol/L Anion Gap (5-15) MEQ/L BUN (9-20) mg/dL Creatinine (0.66-1.25) mg/dL Estimated GFR ML/MIN Glucose (74-106) mg/dL Lactic Acid 1.7 (0.4-2.0) Calcium (8.4-10.2) mg/dL Total Bilirubin (0.2-1.3) mg/dL AST (17-59) U/L ALT (0-50) U/L Alkaline Phosphatase (38-126) U/L Ammonia 16 (9-30) umol/L Serum Total Protein (6.3-8.2) g/dL Albumin (3.5-5.0) g/dL Amylase (30-110) U/L Lipase (23-300) U/L 12/07/18 12/07/18 Range/Units 16:43 16:43 WBC 3.2 L (4.0-10.5) K/mm3 RBC 3.01 L (4.1-5.6) M/mm3 Hgb 11.1 L (12.5-18.0) gm/dl Hct 31.5 L (42-50) % MCV 104.7 H (78-100) fl MCH 36.8 H (26-32) pg MCHC 35.2 (32-36) g/dl RDW 13.9 (11.5-14.0) % Plt Count 81 L (150-450) K/mm3 MPV 10.2 H (6-9.5) fl Gran % 74.4 H (36.0-66.0) % Eos # (Auto) 0.08 (0-0.5) Absolute Lymphs (auto) 0.38 L (1.0-4.6) Absolute Monos (auto) 0.35 (0.0-1.3) Lymphocytes % 11.9 L (24.0-44.0) % Monocytes % 10.9 (0.0-12.0) % Eosinophils % 2.5 (0.00-5.0) % Basophils % 0.3 (0.0-0.4) % Absolute Granulocytes 2.38 (1.4-6.9) Basophils # 0.01 (0-0.4) PT (8.83-12.87) SECONDS INR (0.8-3.0) APTT (24.1-36.1) SECONDS Sodium 135 L (137-145) mmol/L Potassium 4.7 (3.5-5.1) mmol/L Chloride 104 (98-107) mmol/L Carbon Dioxide 26 (22-30) mmol/L Anion Gap 9.2 (5-15) MEQ/L BUN 22 H (9-20) mg/dL Creatinine 0.91 (0.66-1.25) mg/dL Estimated GFR > 60.0 ML/MIN Glucose 250 H (74-106) mg/dL Lactic Acid (0.4-2.0) Calcium 8.2 L (8.4-10.2) mg/dL Total Bilirubin 2.00 H (0.2-1.3) mg/dL AST 59 (17-59) U/L ALT 36 (0-50) U/L Alkaline Phosphatase 164 H (38-126) U/L Ammonia (9-30) umol/L Serum Total Protein 7.2 (6.3-8.2) g/dL Albumin 2.5 L (3.5-5.0) g/dL Amylase 54 (30-110) U/L Lipase 259 (23-300) U/L reviewed - Progress Progress: re-examined Progress Note: 12/07/18 17:21 cbc h/h= ; plt low 81; wbc - 3.2; bs = 250; bun up=22; cr= .91 na low 135; low albumin2.5; bili t= 2.0 lip and jorge - wnlalk phos up 164;lact= 1.7; inr= 1.63; ptt = 34/ pt=19 12/07/18 17:47 serum ammonia = 16; discussed findings; at bed side; doesn't stick to diet well; here yesterday for med; instructions given; encouraged to follow up with LMD and GI Doc for meds and pain control; Aranza helped N&V; will medicate; recheck and observe Counseled pt/family regarding: lab results, diagnosis, need for follow-up - Departure Time of Disposition: 18:05 Departure Disposition: Home Clinical Impression: Abdominal pain, Cirrhosis, Recurrent abdominal pain, Ascites due to alcoholic cirrhosis Condition: Stable Critical Care Time: No Referrals: DOCTOR,NO FAMILY [Primary Care Provider] - Additional Instructions: stick to diet; take home meds; follow up GI DOc for pain control Follow-up with family doctor as directed. Call for appointment. Return if any problems. If you smoke please stop. Call or follow up with your family doctor for assistance if you need it to stop. Please wear your seatbelt when driving. Have a nice day. Thank you for allowing us to participate in your care today. :o) Dr Michael Anderson
[2018-12-07] MEDS ORDERED: Hydromorphone 1 mg/ml Ampule IV ONE (17:50)
[2018-12-07] MEDS ORDERED: Hydromorphone 1 mg/ml Ampule ONE (17:52)
[2018-12-07 17:56] VITALS: BP 104/78; PULSE 100; O2SAT 99
== END 2018-12-07 18:35 | disposition home or self-care (01) ==
LOC: ED 16:01
DX: R10.9 Unspecified abdominal pain (principal); K70.31 Alcoholic cirrhosis of liver with ascites; M10.9 Gout, unspecified; B19.20 Unspecified viral hepatitis C without hepatic coma; Z79.899 Other long term (current) drug therapy; E11.9 Type 2 diabetes mellitus without complications
CPT/HCPCS: 36000; 36415; 80053; 82140; 82150; 83605; 83690; 85025; 85610; 85730; 96360; 96361; 96374; 99284; J1170; Q0162

== ENCOUNTER 2018-12-08 08:22 | Emergency (ER) | payer OTHER ==
[2018-12-08 09:48] VITALS: BP 102/75; PULSE 70; O2SAT 98
--- NOTE | 2018-12-08 09:58 | ERPHSYRPT ---
- History of Present Illness Historian: patient Exam Limitations: no limitations Patient Subjective Stated Complaint: pt here for chronic abdominal pain, he has liver disease and states she thinks hes belly is bigger then it was yesterday when he was here. he is not due to be tapped till sunday Triage Nursing Assessment: pt alert, resp easy, skin sallow, has large distended ,firm abd. Physician History: Pt presented to the ED complaining of abdominal pain and distention secondary to ascites. Pt with h/o cirrhosis, and end stage liver disease. He came to the ER yesterday and got pain meds (Dilaudid), and today is very uncomfortable, and distended. Pt is getting paracenthesis on Sunday, but he feels very uncomfortable. Pt denies SOB or cough. No N/V/D. No change in mentation. Timing/Duration: week(s) Activities at Onset: none Quality: pressure, tightness Abdominal Pain Onset Location: generalized abdomen Pain Radiation: no radiation Modifying Factors: Improves With: nothing Associated Symptoms: denies symptoms Allergies/Adverse Reactions: tramadol Allergy (Mild, Verified 12/08/18 08:40) aspirin Allergy (Verified 12/08/18 08:40) bleeding hydromorphone [From Dilaudid] Adverse Reaction (Verified 12/08/18 08:40) TRIAZADONE Adverse Reaction (Mild, Uncoded 12/08/18 08:40) Nausea Home Medications: Furosemide 40 mg PO BID 11/18/18 [History] Lactulose 10 gm/15 ml [Enulose 10 GM/15 ML] 40 ml PO BID 11/18/18 [History ] Spironolactone 100 mg PO BID 11/18/18 [History] Ondansetron ODT 4 MG [Zofran Odt 4 mg] 4 mg PO STAT 11/29/18 [History] Morphine Sulfate Ir 15 mg [Msir 15 mg] 15 mg BID 12/07/18 [History] Hx Tetanus, Diphtheria Vaccination/Date Given: Yes Hx Influenza Vaccination/Date Given: No Hx Pneumococcal Vaccination/Date Given: No Immunizations Up to Date: Yes - Review of Systems Constitutional: No Fever, No Chills Eyes: No Symptoms Ears, Nose, & Throat: No Symptoms Respiratory: No Cough, No Dyspnea Cardiac: No Chest Pain, No Edema, No Syncope Abdominal/Gastrointestinal: Abdominal Pain - Past Medical History Pertinent Past Medical History: Yes Neurological History: No Pertinent History ENT History: No Pertinent History Cardiac History: No Pertinent History Respiratory History: No Pertinent History Endocrine Medical History: Diabetes Type II Musculoskeletal History: No Pertinent History GI Medical History: No Pertinent History History: No Pertinent History Psycho-Social History: No Pertinent History Male Reproductive Disorders: No Pertinent History Other Medical History: GOUTY ARTHRITIS, hep c. liver failure - Past Surgical History Past Surgical History: Yes Neuro Surgical History: No Pertinent History Cardiac: No Pertinent History Respiratory: No Pertinent History Gastrointestinal: No Pertinent History Genitourinary: No Pertinent History Musculoskeletal: No Pertinent History Male Surgical History: No Pertinent History Other Surgical History: INGUINAL ABSCESS I&D. paracentesis Nov 2018 - Social History Smoking Status: Current every day smoker How long have you smoked: 30 years Exposure to second hand smoke: Yes Alcohol Use: None Drug Use: none Patient Lives Alone: No Significant Family History: heart disease, diabetes - Nursing Vital Signs Nursing Vital Signs: Initial Vital Signs Temperature 98.2 F 12/08/18 08:35 Pulse Rate 73 12/08/18 08:35 Respiratory Rate 18 12/08/18 08:35 Blood Pressure 107/81 12/08/18 08:35 O2 Sat by Pulse Oximetry 99 12/08/18 08:35 Pain Scale Pain Intensity 9 - Physical Exam General Appearance: no apparent distress, alert, other (jaundiced) Eye Exam: scleral icterus Ears, Nose, Throat Exam: normal ENT inspection, pharynx normal, moist mucous membranes Neck Exam: normal inspection, non-tender, supple, full range of motion Gastrointestinal/Abdomen Exam: distention SpO2: 98 - Course Nursing assessment & vital signs reviewed: Yes - Progress Progress: unchanged Progress Note: 12/08/18 09:56 I tried to transfer pt to [facility]. Multiple phone calls were done, and multiple conversations with ED physicians, hospitalists and transfer centers. Pt was very angry about the time that it takes, and decided to leave AMA. he stated, will go to [facility] ER by himself. - Departure Time of Disposition: 09:57 Departure Disposition: AMA Clinical Impression: Ascites Condition: Stable Critical Care Time: No Referrals: DOCTOR,NO FAMILY [Primary Care Provider] -
== END 2018-12-08 09:50 | disposition left against medical advice (07) ==
LOC: ED 08:22
DX: R18.8 Other ascites (principal); E11.9 Type 2 diabetes mellitus without complications; K76.9 Liver disease, unspecified; M10.9 Gout, unspecified; B19.20 Unspecified viral hepatitis C without hepatic coma; Z79.899 Other long term (current) drug therapy
CPT/HCPCS: 99283

== ENCOUNTER 2018-12-12 11:20 | Emergency (ER) | payer OTHER ==
[2018-12-12] MEDS ORDERED: Hydromorphone 1 mg/ml Ampule IM ONE (11:48)
[2018-12-12] MEDS ORDERED: ZOFRAN ODT 4 MG PO ONE (11:51)
[2018-12-12] MEDS ORDERED: Hydromorphone 1 mg/ml Ampule ONE (11:54)
[2018-12-12] MEDS ORDERED: ZOFRAN ODT 4 MG ONE (11:54)
--- NOTE | 2018-12-12 11:59 | ERPHSYRPT ---
- History of Present Illness Time Seen by Provider: 12/12/18 11:45 Historian: patient Patient Subjective Stated Complaint: pt here for chronic pain to abd. he has liver failure. pt missed hes paracentitis yesterday because hes was ill. is with pt today Triage Nursing Assessment: pt alert, resp easy, skin w/d and large and distended. firm to touch Physician History: 43-year-old white male with history of chronic abdominal pain, liver failure, cirrhosis patient arrives with complaint of abdominal pain which has been chronic. He apparently had been seen in this emergency room several days ago he apparently presented afterwards to [facility] where he was placed on observation and released he received morphine IR 15 mg #20 of them on 12/09/2018. He states that he was supposed to have abdominal paracentesis yesterday but missed that he has an appointment for tomorrow but he states he used all of his morphine IR and is having abdominal pain. Patient with no nausea no vomiting. Past medical history includes chronic abdominal pain, diabetes type 2, gouty arthritis, hepatitis C, liver failure Past surgical history includes inguinal abscess and paracentesis Timing/Duration: today Activities at Onset: none Quality: aching Abdominal Pain Onset Location: generalized abdomen Pain Radiation: no radiation Severity of Pain-Max: moderate Severity of Pain-Current: moderate Modifying Factors: Improves With: other (patient had pain medications but took them all) Associated Symptoms: denies symptoms Previous symptoms: same symptoms as today, recent hospitalization Allergies/Adverse Reactions: tramadol Allergy (Mild, Verified 12/12/18 11:30) aspirin Allergy (Verified 12/12/18 11:30) bleeding hydromorphone [From Dilaudid] Adverse Reaction (Verified 12/12/18 11:30) TRIAZADONE Adverse Reaction (Mild, Uncoded 12/12/18 11:30) Nausea Home Medications: Furosemide 40 mg PO BID 11/18/18 [History] Lactulose 10 gm/15 ml [Enulose 10 GM/15 ML] 40 ml PO BID 11/18/18 [History ] Spironolactone 100 mg PO BID 11/18/18 [History] Ondansetron ODT 4 MG [Zofran Odt 4 mg] 4 mg PO STAT 11/29/18 [History] Morphine Sulfate Ir 15 mg [Msir 15 mg] 15 mg BID 12/07/18 [History] Hx Tetanus, Diphtheria Vaccination/Date Given: Yes Hx Influenza Vaccination/Date Given: No Hx Pneumococcal Vaccination/Date Given: No Immunizations Up to Date: Yes - Review of Systems Constitutional: No Fever, No Chills Eyes: No Symptoms Ears, Nose, & Throat: No Symptoms Respiratory: No Cough, No Dyspnea Cardiac: No Chest Pain, No Edema, No Syncope Abdominal/Gastrointestinal: Abdominal Pain, No Nausea, No Vomiting, No Diarrhea , No Constipation, No Hematemesis, No Hematochezia, No Melena, No Dysphagia, No Appetite Changes Genitourinary Symptoms: No Dysuria Musculoskeletal: No Back Pain, No Neck Pain Skin: No Rash Neurological: No Dizziness, No Focal Weakness, No Sensory Changes Psychological: No Symptoms Endocrine: No Symptoms All Other Systems: Reviewed and Negative - Past Medical History Pertinent Past Medical History: Yes Neurological History: No Pertinent History ENT History: No Pertinent History Cardiac History: No Pertinent History Respiratory History: No Pertinent History Endocrine Medical History: Diabetes Type II Musculoskeletal History: No Pertinent History GI Medical History: No Pertinent History History: No Pertinent History Psycho-Social History: No Pertinent History Male Reproductive Disorders: No Pertinent History Other Medical History: GOUTY ARTHRITIS, hep c. liver failure - Past Surgical History Past Surgical History: Yes Neuro Surgical History: No Pertinent History Cardiac: No Pertinent History Respiratory: No Pertinent History Gastrointestinal: No Pertinent History Genitourinary: No Pertinent History Musculoskeletal: No Pertinent History Male Surgical History: No Pertinent History Other Surgical History: INGUINAL ABSCESS I&D. paracentesis Nov 2018 - Social History Smoking Status: Current every day smoker How long have you smoked: 30 years Exposure to second hand smoke: Yes Alcohol Use: None Drug Use: none Patient Lives Alone: No Significant Family History: heart disease, diabetes - Nursing Vital Signs Nursing Vital Signs: Initial Vital Signs Temperature 97.4 F 12/12/18 11:24 Pulse Rate 99 H 12/12/18 11:24 Respiratory Rate 18 12/12/18 11:24 Blood Pressure 119/91 12/12/18 11:24 O2 Sat by Pulse Oximetry 97 12/12/18 11:24 Pain Scale Pain Intensity 10 - Physical Exam General Appearance: moderate distress, alert Eye Exam: PERRL/EOMI, eyes nml inspection Ears, Nose, Throat Exam: normal ENT inspection, pharynx normal, moist mucous membranes Neck Exam: normal inspection, non-tender, supple, full range of motion Respiratory Exam: normal breath sounds, lungs clear, No respiratory distress Cardiovascular Exam: regular rate/rhythm, normal heart sounds, capillary refill <2 sec Gastrointestinal/Abdomen Exam: normal bowel sounds, tenderness (mild diffuse tenderness), other (abdomen is distended somewhat firm.) Back Exam: normal inspection, normal range of motion, No CVA tenderness, No vertebral tenderness Extremity Exam: normal inspection, normal range of motion, pelvis stable Neurologic Exam: alert, oriented x 3, cooperative, 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, normal mood/affect, nml cerebellar function, sensation nml, No motor deficits Skin Exam: normal color, warm, dry SpO2 Interpretation: normal (97%) SpO2: 97 - Course Nursing assessment & vital signs reviewed: Yes Ordered Tests: Active Orders 24 hr Category Date Time Status IV Insertion STAT Care 12/12/18 13:10 Active AMYLASE Stat Lab 12/12/18 12:20 Completed CBC W DIFF Stat Lab 12/12/18 12:20 Completed CMP Stat Lab 12/12/18 12:20 Completed LIPASE Stat Lab 12/12/18 12:20 Completed Medication Summary Discontinued Medications Generic Name Dose Route Start Last Admin Trade Name Freq PRN Reason Stop Dose Admin Hydromorphone HCl 1 mg 12/12/18 11:48 12/12/18 11:55 Hydromorphone 1 Mg/Ml Ampule IM 12/12/18 11:49 1 mg STAT ONE Administration Hydromorphone HCl Confirm 12/12/18 11:54 Hydromorphone 1 Mg/Ml Ampule Administered 12/12/18 11:55 Dose 1 mg .ROUTE .STK-MED ONE Ondansetron HCl 4 mg 12/12/18 11:51 12/12/18 11:56 Zofran Odt 4 Mg PO 12/12/18 11:52 4 mg STAT ONE Administration Ondansetron HCl Confirm 12/12/18 11:54 Zofran Odt 4 Mg Administered 12/12/18 11:55 Dose 4 mg .ROUTE .STK-MED ONE Lab/Rad Data: Laboratory Result Diagrams 12/12/18 12:20 12/12/18 12:20 Laboratory Results 12/12/18 12/12/18 Range/Units 12:20 12:20 WBC 2.1 L (4.0-10.5) K/mm3 RBC 2.78 L (4.1-5.6) M/mm3 Hgb 10.3 L (12.5-18.0) gm/dl Hct 29.4 L (42-50) % MCV 105.8 H (78-100) fl MCH 37.0 H (26-32) pg MCHC 35.0 (32-36) g/dl RDW 13.5 (11.5-14.0) % Plt Count 70 L (150-450) K/mm3 MPV 9.9 H (6-9.5) fl Gran % 68.2 H (36.0-66.0) % Eos # (Auto) 0.04 (0-0.5) Absolute Lymphs (auto) 0.35 L (1.0-4.6) Absolute Monos (auto) 0.27 (0.0-1.3) Lymphocytes % 16.6 L (24.0-44.0) % Monocytes % 12.8 H (0.0-12.0) % Eosinophils % 1.9 (0.00-5.0) % Basophils % 0.5 (0.0-0.4) % Absolute Granulocytes 1.44 (1.4-6.9) Basophils # 0.01 (0-0.4) Sodium 136 L (137-145) mmol/L Potassium 4.3 (3.5-5.1) mmol/L Chloride 106 (98-107) mmol/L Carbon Dioxide 26 (22-30) mmol/L Anion Gap 8.6 (5-15) MEQ/L BUN 19 (9-20) mg/dL Creatinine 1.04 (0.66-1.25) mg/dL Estimated GFR > 60.0 ML/MIN Glucose 135 H (74-106) mg/dL Calcium 8.0 L (8.4-10.2) mg/dL Total Bilirubin 2.60 H (0.2-1.3) mg/dL AST 65 H (17-59) U/L ALT 35 (0-50) U/L Alkaline Phosphatase 138 H (38-126) U/L Serum Total Protein 7.2 (6.3-8.2) g/dL Albumin 2.4 L (3.5-5.0) g/dL Amylase 54 (30-110) U/L Lipase 127 (23-300) U/L Slides for Path Review YES - Progress Progress: improved Progress Note: 12/12/18 11:56 43-year-old white male with history of chronic abdominal pain cirrhosis patient has been seen here several times over the past week ago secondary to abdominal pain he apparently had had paracentesis in the past he went to [facility] several days ago and was released he states he was supposed to have paracentesis yesterday but he did not go. He states he has an appointment for abdominal paracentesis tomorrow. He apparently had a prescription for morphine sulfate IR 15 mg he received 25 of these on December 09, 2018 he states he finished his last one last night. He states he is having abdominal pain. On physical examination patient does have a distended abdomen it is mildly firm but still somewhat soft he has positive bowel sounds. He has diffuse tenderness. I have sent away for records for [facility]. Patient apparently has an appointment tomorrow afternoon with the radiologist to perform paracentesis. Will go ahead and give patient hydromorphone 1 mg IM and Zofran 4 mg by mouth. And obtain CBC CMP amylase lipase. Will review records from [facility]. 12/12/18 12:18 Medical records from patient's visit to [facility] are reviewed. Patient with a ultrasound pre-paracentesis evaluation done on December 09, 2018 at 1140 Impression: Moderate ascites in the abdomen. Patient apparently did not want paracentesis at that time. Patient's labs were reviewed from December 08 patient with white count 2.6 hemoglobin 10.8 hematocrit 30.9 platelets 86 Patient with chemistry from December 08, 2018 sodium 140 potassium 4.8 chloride 107 bicarbonate 26 carbon dioxide 26 glucose 201 creatinine 1 total bilirubin 1.5 AST 37 ALT 34 alkaline phosphatase 172 , Impression 1 chronic abdominal pain. 2 ascites. Plan Will review patient's CBC CMP amylase lipase here in the emergency room. Patient was given hydromorphone 1 mg IM and Zofran 4 mg by mouth. Will plan to discharge patient if labs are stable he is to follow-up with [facility] tomorrow as scheduled. We will not write take-home narcotics patient already was given 20 morphine IR which were supposed to last 4 days and he took them in 2 days he will need to follow-up with either his family doctor or his clinical research spec for further pain medications. 12/12/18 13:11 Patient's labs are reviewed and unfortunately patient with a white count down to 2.1 platelets are 70 Patient appears to be stable I discussed the case with Dr. Aldana at [facility] as well as Dr. Quezada. They do relate that the patient has had a leukopenia and thrombocytopenia in the past however they do state that the patient would benefit from paracentesis. Will go ahead and transfer patient over to [facility]. Impression 1. Abdominal pain 2. Cirrhosis 3. Ascites 4. Leukopenia 5. Thrombocytopenia. - Departure Time of Disposition: 13:13 Departure Disposition: Transfer ([facility]) Clinical Impression: Chronic abdominal pain, Ascites due to alcoholic cirrhosis, Thrombocytopenia Ascites Qualifiers: Ascites type: due to alcoholic cirrhosis Qualified Code(s): K70.31 - Alcoholic cirrhosis of liver with ascites Leukopenia Qualifiers: Leukopenia type: unspecified Qualified Code(s): D72.819 - Decreased white blood cell count, unspecified Condition: Fair Critical Care Time: No Referrals: ANSLEY GARRETT [Primary Care Provider] - Additional Instructions: Return home. Clear fluids 24 hours if abdominal pain. Present for your abdominal paracentesis tomorrow as scheduled. Follow-up with your family doctor or clinical research spec for further pain medications. Return for acute distress or for severe symptoms.
[2018-12-12 12:22] LABS: BASOPHIL % 0.5 % (0.0-0.4); Basophil (Absolute #) 0.01 (0-0.4); Eosinophil % 1.9 % (0.00-5.0); Eosinophil (Absolute #) 0.04 (0-0.5); Granulocyte Absolute (ANC) 1.44 (1.4-6.9); Granulocytes % 68.2 % (36.0-66.0); Hematocrit 29.4 % (42-50); Hemoglobin 10.3 gm/dl (12.5-18.0); Lymphocyte (Absolute #) 0.35 (1.0-4.6); Lymphocytes % 16.6 % (24.0-44.0); Mean Cell Volume 105.8 fl (78-100); Mean Platelet Volume 9.9 fl (6-9.5); Monocyte (Absolute #) 0.27 (0.0-1.3); Monocytes % 12.8 % (0.0-12.0); Platelet Count 70 K/mm3 (150-450); Red Blood Count 2.78 M/mm3 (4.1-5.6); Red Cell Distribution Width 13.5 % (11.5-14.0); White Blood Count 2.1 K/mm3 (4.0-10.5)
[2018-12-12 12:43] LABS: Slide Review 1 YES
[2018-12-12 12:44] LABS: ALBUMIN 2.4 g/dL (3.5-5.0); ALKALINE PHOSPHATASE 138 U/L (38-126); AMYLASE 54 U/L (30-110); ANION GAP 8.6 MEQ/L (5-15); BLOOD UREA NITROGEN 19 mg/dL (9-20); CHLORIDE 106 mmol/L (98-107); Carbon Dioxide 26 mmol/L (22-30); Creatinine 1 1.04 mg/dL (0.66-1.25); Glucose 135 mg/dL (74-106); LIPASE 127 U/L (23-300); Potassium 4.3 mmol/L (3.5-5.1); SGOT/AST 65 U/L (17-59); SGPT/ALT 35 U/L (0-50); SODIUM 136 mmol/L (137-145); Total Protein 7.2 g/dL (6.3-8.2)
[2018-12-12 13:39] VITALS: BP 122/64; PULSE 84; O2SAT 99
== END 2018-12-12 14:18 | disposition short-term general hospital (02) ==
LOC: ED 11:20
DX: R10.9 Unspecified abdominal pain (principal); G89.29 Other chronic pain; K70.31 Alcoholic cirrhosis of liver with ascites; D47.3 Essential (hemorrhagic) thrombocythemia; E11.9 Type 2 diabetes mellitus without complications; M10.9 Gout, unspecified; B19.20 Unspecified viral hepatitis C without hepatic coma; Z79.899 Other long term (current) drug therapy
CPT/HCPCS: 36415; 80053; 82150; 83690; 85025; 96372; 99284; 99285; J1170; Q0162

== ENCOUNTER 2018-12-15 20:06 | Emergency (ER) | payer OTHER ==
[2018-12-15] MEDS ORDERED: Hydromorphone 1 mg/ml Ampule IM ONE (20:54)
[2018-12-15] MEDS ORDERED: ZOFRAN ODT 4 MG PO ONE (20:55)
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
[2018-12-15] MEDS ORDERED: ZOFRAN ODT 4 MG ONE (21:05)
[2018-12-15] MEDS ORDERED: Hydromorphone 1 mg/ml Ampule ONE (21:05)
[2018-12-15 21:39] LABS: BASOPHIL % 0.4 % (0.0-0.4); Basophil (Absolute #) 0.01 (0-0.4); Eosinophil % 2.2 % (0.00-5.0); Eosinophil (Absolute #) 0.06 (0-0.5); Granulocyte Absolute (ANC) 1.96 (1.4-6.9); Granulocytes % 72.3 % (36.0-66.0); Hematocrit 31.4 % (42-50); Hemoglobin 10.9 gm/dl (12.5-18.0); Lymphocyte (Absolute #) 0.38 (1.0-4.6); Mean Cell Volume 105.7 fl (78-100); Mean Corpuscular Hemoglobin 36.7 pg (26-32); Mean Corpuscular Hgb Concent. 34.7 g/dl (32-36); Monocytes % 11.1 % (0.0-12.0); Platelet Count 74 K/mm3 (150-450); Red Blood Count 2.97 M/mm3 (4.1-5.6); Red Cell Distribution Width 13.9 % (11.5-14.0); White Blood Count 2.7 K/mm3 (4.0-10.5)
[2018-12-15 21:50] LABS: ALBUMIN 2.4 g/dL (3.5-5.0); ALKALINE PHOSPHATASE 176 U/L (38-126); ANION GAP 10.2 MEQ/L (5-15); BLOOD UREA NITROGEN 16 mg/dL (9-20); CHLORIDE 107 mmol/L (98-107); Calcium 8.3 mg/dL (8.4-10.2); Carbon Dioxide 27 mmol/L (22-30); Creatinine 1 0.86 mg/dL (0.66-1.25); Glucose 222 mg/dL (74-106); Potassium 4.9 mmol/L (3.5-5.1); SGOT/AST 53 U/L (17-59); SGPT/ALT 32 U/L (0-50); SODIUM 139 mmol/L (137-145); Total Protein 6.8 g/dL (6.3-8.2)
[2018-12-15 22:05] VITALS: BP 116/88; PULSE 88
[2018-12-15 23:53] LABS: Slide Review 1 YES
[2018-12-16 02:35] VITALS: O2SAT 100
== END 2018-12-15 22:05 | disposition home or self-care (01) ==
LOC: ED 20:06
DX: K70.31 Alcoholic cirrhosis of liver with ascites (principal); R10.84 Generalized abdominal pain; E11.9 Type 2 diabetes mellitus without complications; M10.9 Gout, unspecified; B19.20 Unspecified viral hepatitis C without hepatic coma; K72.90 Hepatic failure, unspecified without coma
CPT/HCPCS: 36415; 80053; 85025; 96372; 99284; J1170; Q0162

== ENCOUNTER 2018-12-19 13:24 | Emergency (ER) | payer OTHER ==
--- NOTE | 2018-12-19 13:39 | ERPHSYRPT ---
- History of Present Illness Time Seen by Provider: 12/19/18 13:39 Source: patient Exam Limitations: no limitations Physician History: 43 y/o white male presents with swollen right lower ext. increased in size in one day. tenderness present. pt has worsening ascites. has scheduled paracentesis tomorrow at [facility] Timing/Duration: worse Severity: moderate Associated Symptoms: No nausea, No vomiting, No abdominal pain Allergies/Adverse Reactions: tramadol Allergy (Mild, Verified 12/19/18 14:08) aspirin Allergy (Verified 12/19/18 14:08) bleeding TRIAZADONE Adverse Reaction (Mild, Uncoded 12/19/18 14:08) Nausea Home Medications: Furosemide 40 mg PO BID 11/18/18 [History] Lactulose 10 gm/15 ml [Enulose 10 GM/15 ML] 40 ml PO BID 11/18/18 [History ] Spironolactone 100 mg PO BID 11/18/18 [History] Ondansetron ODT 4 MG [Zofran Odt 4 mg] 4 mg PO STAT 11/29/18 [History] Morphine Sulfate [Morphine Sulfate ER] 15 mg PO DAILY 12/19/18 [History] Hx Tetanus, Diphtheria Vaccination/Date Given: Yes Hx Influenza Vaccination/Date Given: No Hx Pneumococcal Vaccination/Date Given: No - Review of Systems Constitutional: No Symptoms Eyes: No Symptoms Ears, Nose, & Throat: No Symptoms Respiratory: No Symptoms Cardiac: No Symptoms Abdominal/Gastrointestinal: No Symptoms Genitourinary Symptoms: No Symptoms Musculoskeletal: Other (right leg swelling and pain) Skin: No Symptoms Neurological: No Symptoms Psychological: No Symptoms Endocrine: No Symptoms Hematologic/Lymphatic: No Symptoms Immunological/Allergic: No Symptoms All Other Systems: Reviewed and Negative - Past Medical History Pertinent Past Medical History: Yes Neurological History: No Pertinent History ENT History: No Pertinent History Cardiac History: No Pertinent History Respiratory History: No Pertinent History Endocrine Medical History: Diabetes Type II Musculoskeletal History: No Pertinent History GI Medical History: No Pertinent History History: No Pertinent History Psycho-Social History: No Pertinent History Male Reproductive Disorders: No Pertinent History Other Medical History: GOUTY ARTHRITIS, hep c. liver failure - Past Surgical History Past Surgical History: Yes Neuro Surgical History: No Pertinent History Cardiac: No Pertinent History Respiratory: No Pertinent History Gastrointestinal: No Pertinent History Genitourinary: No Pertinent History Musculoskeletal: No Pertinent History Male Surgical History: No Pertinent History Other Surgical History: INGUINAL ABSCESS I&D. paracentesis Nov 2018 - Social History Smoking Status: Current every day smoker How long have you smoked: 30 years Exposure to second hand smoke: Yes Alcohol Use: None Drug Use: none Patient Lives Alone: No Significant Family History: heart disease, diabetes - Nursing Vital Signs Nursing Vital Signs: Initial Vital Signs Temperature 98 F 12/19/18 13:24 Pulse Rate 118 H 12/19/18 13:24 Respiratory Rate 18 12/19/18 13:24 Blood Pressure 138/99 12/19/18 13:24 O2 Sat by Pulse Oximetry 99 12/19/18 13:24 Pain Scale Pain Intensity 7 - Physical Exam General Appearance: no apparent distress, alert, anxiety Eye Exam: PERRL/EOMI Ears, Nose, Throat Exam: normal ENT inspection, moist mucous membranes Neck Exam: normal inspection, non-tender, supple, full range of motion Respiratory Exam: normal breath sounds, lungs clear, airway intact, No chest tenderness, No respiratory distress Cardiovascular Exam: tachycardia Gastrointestinal/Abdomen Exam: distention (with recurrent ascites) Rectal Exam: not done Back Exam: normal inspection, normal range of motion Extremity Exam: swelling (right lower ext. 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 pt has had dilaudid before a number of times without problems. 12/19/18 14:26 venous doppler right lower ext-no dvt. Counseled pt/family regarding: diagnosis, need for follow-up - Departure Time of Disposition: 14:27 Departure Disposition: Home Clinical Impression: Right leg swelling Condition: Stable Critical Care Time: No Referrals: ANSLEY GARRETT [Primary Care Provider] - Additional Instructions: keep your appointment at [facility] for scheduled paracentesis.
[2018-12-19] MEDS ORDERED: Hydromorphone 1 mg/ml Ampule IM ONE (14:24)
[2018-12-19 14:25] VITALS: BP 101/67
[2018-12-19] MEDS ORDERED: ZOFRAN ODT 4 MG PO ONE (14:25)
[2018-12-19] MEDS ORDERED: ZOFRAN ODT 4 MG ONE (14:27)
[2018-12-19] MEDS ORDERED: Hydromorphone 1 mg/ml Ampule ONE (14:28)
--- NOTE | 2018-12-19 15:06 | XRAY ---
Indication: Right leg swelling. Two-dimensional sonogram and color Doppler imaging of the major venous vessels of the right leg was performed. Comparison: None No thrombus seen in the examined deep venous vessels of the right leg including greater saphenous vein. Veins demonstrate normal compressibility. Venous waveforms are normal with and without augmentation. Incidental benign-appearing right inguinal lymph nodes, largest 2.5 x 0.8 x 1.7 cm. Impression: Right leg negative for DVT.
[2018-12-19 15:10] VITALS: PULSE 86; O2SAT 97
== END 2018-12-19 15:10 | disposition home or self-care (01) ==
LOC: ED 13:24
DX: M79.89 Other specified soft tissue disorders (principal); E11.9 Type 2 diabetes mellitus without complications; M10.9 Gout, unspecified; Z79.899 Other long term (current) drug therapy; B19.20 Unspecified viral hepatitis C without hepatic coma; M79.604 Pain in right leg
CPT/HCPCS: 93971; 96372; 99283; J1170; Q0162

== ENCOUNTER 2018-12-25 00:07 | Emergency (ER) | payer MEDICAID, OTHER ==
--- NOTE | 2018-12-25 00:42 | ERPHSYRPT ---
- History of Present Illness Time Seen by Provider: 12/25/18 00:34 Historian: patient Exam Limitations: no limitations Patient Subjective Stated Complaint: PT STATES HIS ABD PAIN WORSENED TODAY, UNABLE TO HAVE PARACENTESIS UNTIL 3 DAYS FROM NOW. Triage Nursing Assessment: PINK/WARM/DRY, RESP EASY, A&OX4, STEADY GAIT, GROSSLY DISTENDED FIRM ABD NOTED. Physician History: 43-year-old white male who is presented to this emergency room multiple times secondary to abdominal pain and distention who has known history of ascites and cirrhosis. Arrives with complaint of pain in the left upper abdomen symptoms worse since today but chronic. Patient states he's been seen at [facility] multiple times secondary to this patient apparently has been on morphine sulfate intermediate release he apparently got his last dose of 15 mg on December 17, 2018. Past medical history includes diabetes type 2, gouty arthritis, hepatitis C, liver failure, cirrhosis, ascites. Past surgical history includes inguinal hernia, abdominal paracentesis. Social history positive tobacco use. Timing/Duration: other (chronic abdominal pain worse today) Quality: aching Abdominal Pain Onset Location: [facility] Severity of Pain-Max: moderate Severity of Pain-Current: moderate Modifying Factors: Improves With: nothing Previous symptoms: same symptoms as today (Patient seen multiple times for same complaint) Allergies/Adverse Reactions: tramadol Allergy (Mild, Verified 12/19/18 14:08) aspirin Allergy (Verified 12/19/18 14:08) bleeding TRIAZADONE Adverse Reaction (Mild, Uncoded 12/19/18 14:08) Nausea Home Medications: Furosemide 40 mg PO BID 11/18/18 [History] Lactulose 10 gm/15 ml [Enulose 10 GM/15 ML] 40 ml PO BID 11/18/18 [History ] Spironolactone 100 mg PO BID 11/18/18 [History] Ondansetron ODT 4 MG [Zofran Odt 4 mg] 4 mg PO STAT 11/29/18 [History] Morphine Sulfate [Morphine Sulfate ER] 15 mg PO DAILY 12/19/18 [History] Hx Tetanus, Diphtheria Vaccination/Date Given: Yes Hx Influenza Vaccination/Date Given: Yes Hx Pneumococcal Vaccination/Date Given: No Immunizations Up to Date: Yes - Review of Systems Constitutional: No Fever, No Chills Eyes: No Symptoms Ears, Nose, & Throat: No Symptoms Respiratory: No Cough, No Dyspnea Cardiac: No Chest Pain, No Edema, No Syncope Abdominal/Gastrointestinal: Abdominal Pain, No Nausea, No Vomiting, No Diarrhea , No Constipation, No Hematemesis, No Hematochezia, No Melena, No Dysphagia, No Appetite Changes Genitourinary Symptoms: No Dysuria Musculoskeletal: No Back Pain, No Neck Pain Skin: No Rash Neurological: No Dizziness, No Focal Weakness, No Sensory Changes Psychological: No Symptoms Endocrine: No Symptoms All Other Systems: Reviewed and Negative - Past Medical History Pertinent Past Medical History: Yes Neurological History: No Pertinent History ENT History: No Pertinent History Cardiac History: No Pertinent History Respiratory History: No Pertinent History Endocrine Medical History: Diabetes Type II Musculoskeletal History: No Pertinent History GI Medical History: Cirrhosis, Other History: No Pertinent History Psycho-Social History: No Pertinent History Male Reproductive Disorders: No Pertinent History Other Medical History: GOUTY ARTHRITIS, hep c. liver failure - Past Surgical History Past Surgical History: Yes Neuro Surgical History: No Pertinent History Cardiac: No Pertinent History Respiratory: No Pertinent History Gastrointestinal: No Pertinent History Genitourinary: No Pertinent History Musculoskeletal: No Pertinent History Male Surgical History: No Pertinent History Other Surgical History: INGUINAL ABSCESS I&D. paracentesis Nov 2018 - Social History Smoking Status: Current every day smoker How long have you smoked: 30 years Exposure to second hand smoke: Yes Alcohol Use: None Drug Use: none Patient Lives Alone: No Significant Family History: heart disease, diabetes - Nursing Vital Signs Nursing Vital Signs: Initial Vital Signs Temperature 97.8 F 12/25/18 00:16 Pulse Rate 114 H 12/25/18 00:16 Respiratory Rate 20 12/25/18 00:16 Blood Pressure 136/90 12/25/18 00:16 O2 Sat by Pulse Oximetry 100 12/25/18 00:16 Pain Scale Pain Intensity 9 - Physical Exam General Appearance: no apparent distress Eye Exam: PERRL/EOMI, eyes nml inspection Ears, Nose, Throat Exam: normal ENT inspection, pharynx normal, moist mucous membranes Neck Exam: normal inspection, non-tender, supple, full range of motion Respiratory Exam: normal breath sounds, lungs clear, No respiratory distress Cardiovascular Exam: regular rate/rhythm, normal heart sounds Gastrointestinal/Abdomen Exam: normal bowel sounds, other (patient mildly firm but tender with palpation.) Back Exam: normal inspection, normal range of motion, No CVA tenderness, No vertebral tenderness Extremity Exam: normal inspection, normal range of motion (Withdrawal labs before we st), pelvis stable Neurologic Exam: alert, oriented x 3, cooperative, 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, normal mood/affect, nml cerebellar function, sensation nml, No motor deficits Skin Exam: normal color, warm, dry SpO2 Interpretation: normal (100%), borderline oxygenation SpO2: 100 - Course Nursing assessment & vital signs reviewed: Yes Ordered Tests: Active Orders 24 hr Category Date Time Status ABDOMEN AND PELVIS W/0 CONTRAS [CT] Stat Exams 12/25/18 02:02 Taken AMYLASE Stat Lab 12/25/18 01:12 Completed CBC W DIFF Stat Lab 12/25/18 01:12 Completed CMP Stat Lab 12/25/18 01:12 Completed LIPASE Stat Lab 12/25/18 01:12 Completed UA W/RFX UR CULTURE Stat Lab 12/25/18 01:44 Completed Medication Summary Discontinued Medications Generic Name Dose Route Start Last Admin Trade Name Ruth Ann PRN Reason Stop Dose Admin Hydromorphone HCl 1 mg 12/25/18 00:49 12/25/18 01:12 Hydromorphone 1 Mg/Ml Ampule IM 12/25/18 00:50 1 mg STAT ONE Administration Hydromorphone HCl Confirm 12/25/18 01:07 Hydromorphone 1 Mg/Ml Ampule Administered 12/25/18 01:08 Dose 1 mg .ROUTE .STK-MED ONE Ondansetron HCl 4 mg 12/25/18 00:49 12/25/18 01:12 Zofran Odt 4 Mg PO 12/25/18 00:50 4 mg STAT ONE Administration Ondansetron HCl Confirm 12/25/18 01:07 Zofran Odt 4 Mg Administered 12/25/18 01:08 Dose 4 mg .ROUTE .STK-MED ONE Lab/Rad Data: Laboratory Result Diagrams 12/25/18 01:12 12/25/18 01:12 Laboratory Results 12/25/18 12/25/18 12/25/18 Range/Units 01:44 01:12 01:12 WBC 3.2 L (4.0-10.5) K/mm3 RBC 2.95 L (4.1-5.6) M/mm3 Hgb 10.7 L (12.5-18.0) gm/dl Hct 30.7 L (42-50) % MCV 104.1 H (78-100) fl MCH 36.2 H (26-32) pg MCHC 34.9 (32-36) g/dl RDW 13.7 (11.5-14.0) % Plt Count 74 L (150-450) K/mm3 MPV 10.4 H (6-9.5) fl Gran % 70.5 H (36.0-66.0) % Eos # (Auto) 0.05 (0-0.5) Absolute Lymphs (auto) 0.47 L (1.0-4.6) Absolute Monos (auto) 0.40 (0.0-1.3) Lymphocytes % 14.9 L (24.0-44.0) % Monocytes % 12.7 H (0.0-12.0) % Eosinophils % 1.6 (0.00-5.0) % Basophils % 0.3 (0.0-0.4) % Absolute Granulocytes 2.22 (1.4-6.9) Basophils # 0.01 (0-0.4) Sodium 137 (137-145) mmol/L Potassium 4.0 (3.5-5.1) mmol/L Chloride 106 (98-107) mmol/L Carbon Dioxide 25 (22-30) mmol/L Anion Gap 9.8 (5-15) MEQ/L BUN 14 (9-20) mg/dL Creatinine 0.94 (0.66-1.25) mg/dL Estimated GFR > 60.0 ML/MIN Glucose 223 H (74-106) mg/dL Calcium 8.0 L (8.4-10.2) mg/dL Total Bilirubin 2.10 H (0.2-1.3) mg/dL AST 58 (17-59) U/L ALT 36 (0-50) U/L Alkaline Phosphatase 197 H (38-126) U/L Serum Total Protein 7.5 (6.3-8.2) g/dL Albumin 2.7 L (3.5-5.0) g/dL Amylase 58 (30-110) U/L Lipase 156 (23-300) U/L Urine Color CAROLANN (YELLOW) Urine Appearance CLEAR (CLEAR) Urine pH 5.0 (5-6) Ur Specific Romayor 1.022 (1.005-1.025) Urine Protein NEGATIVE (Negative) Urine Ketones NEGATIVE (NEGATIVE) Urine Blood LARGE (0-5) Ludwig/ul Urine Nitrite NEGATIVE (NEGATIVE) Urine Bilirubin NEGATIVE (NEGATIVE) Urine Urobilinogen 4 (0-1) mg/dL Ur Leukocyte Esterase NEGATIVE (NEGATIVE) Urine WBC (Auto) NONE (0-5) /HPF Urine RBC (Auto) 51-100 (0-2) /HPF U Epithel Cells (Auto) NONE (FEW) /HPF Urine Bacteria (Auto) NONE (NEGATIVE) /HPF Urine Mucus (Auto) SLIGHT (NEGATIVE) /HPF Urine Culture Reflexed NO (NO) Urine Glucose >=500 (NEGATIVE) mg/dL - Progress Progress: improved Progress Note: 12/25/18 00:56 43-year-old white male with history of diabetes type 2, gouty arthritis, hepatitis C, liver failure, cirrhosis, ascites. With chronic abdominal pain. Patient has been seen here multiple times in the past secondary to abdominal pain he apparently is on morphine IR which is prescribed by this care last time on December 17, 2018 he was given He 7 tablets. The patient has been able to go to [facility] in the past where he has abdominal paracentesis on a fairly regular basis. Patient states that he is having pain in his left upper quadrant symptoms since today which is not uncommon for the patient this is partly his chronic condition. He has not had any fevers no nausea no vomiting has no urinary symptoms. He states he usually only gets abdominal paracentesis on Sunday at [facility] he states that he has been told he can only have this done once a week. Patient appears to be stable vitals are stable with a mild tachycardia. I've contacted ER physician over at [facility] Dr Lauri Bal. He states he is well familiar with this patient he states the patient presents with abdominal pain he is usually placed in observation without pain medication and he sometimes leaves. He does state that they're unable to do paracentesis and that if the patient was to present to the emergency room at 7 or 8 AM they would be able to accommodate him. Although the patient has been seen here multiple times for narcotic analgesia administration Will go ahead and give the patient Dilaudid 1 mg IM and Zofran 4 mg orally. Patient appears to be stable Will go ahead and check UA CBC CMP amylase and lipase. Will plan to discharge patient if stable he is to follow-up with [facility] tomorrow morning or the patient's family doctor. Will go ahead and ask this hospitals ACL and ordered to see if they can help with the patient's chronic and recurring problem. 12/25/18 03:42 I had ordered a CT of the patient's abdomen secondary to positive blood in his urine. He does have abdominal pain which is chronic but this is new as far as the hematuria goes. Patient appears to be stable he is asking to leave now he does not want to wait until CT results are available. I have told the patient that I cannot tell him right away if he has any abnormalities I expect to see ascites. Patient is planning to go to [facility] in the morning around 7 or 8:00. Will go ahead and discharge patient at this time. He is improved as far as his pain goes and vitals are stable. - Departure Time of Disposition: 03:44 Departure Disposition: Home Clinical Impression: Ascites due to alcoholic cirrhosis Abdominal pain Qualifiers: Abdominal location: left upper quadrant Qualified Code(s): R10.12 - Left upper quadrant pain Hematuria Qualifiers: Hematuria type: unspecified type Qualified Code(s): R31.9 - Hematuria, unspecified Ascites Qualifiers: Ascites type: due to alcoholic cirrhosis Qualified Code(s): K70.31 - Alcoholic cirrhosis of liver with ascites Condition: Fair Critical Care Time: No Referrals: ANSLEY GARRETT [Primary Care Provider] - Additional Instructions: Return home. Follow-up with your family doctor. Follow-up with [facility] in the morning at approximately 78 AM. Return for acute distress severe symptoms or for any problems.
[2018-12-25] MEDS ORDERED: Hydromorphone 1 mg/ml Ampule IM ONE (00:49)
[2018-12-25] MEDS ORDERED: ZOFRAN ODT 4 MG PO ONE (00:49)
[2018-12-25] MEDS ORDERED: ZOFRAN ODT 4 MG ONE (01:07)
[2018-12-25] MEDS ORDERED: Hydromorphone 1 mg/ml Ampule ONE (01:07)
[2018-12-25 01:17] LABS: BASOPHIL % 0.3 % (0.0-0.4); Basophil (Absolute #) 0.01 (0-0.4); Eosinophil % 1.6 % (0.00-5.0); Eosinophil (Absolute #) 0.05 (0-0.5); Granulocyte Absolute (ANC) 2.22 (1.4-6.9); Granulocytes % 70.5 % (36.0-66.0); Hematocrit 30.7 % (42-50); Hemoglobin 10.7 gm/dl (12.5-18.0); Lymphocyte (Absolute #) 0.47 (1.0-4.6); Lymphocytes % 14.9 % (24.0-44.0); Mean Cell Volume 104.1 fl (78-100); Mean Corpuscular Hgb Concent. 34.9 g/dl (32-36); Mean Platelet Volume 10.4 fl (6-9.5); Monocytes % 12.7 % (0.0-12.0); Platelet Count 74 K/mm3 (150-450); Red Blood Count 2.95 M/mm3 (4.1-5.6); Red Cell Distribution Width 13.7 % (11.5-14.0); White Blood Count 3.2 K/mm3 (4.0-10.5)
[2018-12-25 01:19] LABS: Mean Corpuscular Hemoglobin 36.2 pg (26-32)
[2018-12-25 01:29] LABS: ALBUMIN 2.7 g/dL (3.5-5.0); ALKALINE PHOSPHATASE 197 U/L (38-126); AMYLASE 58 U/L (30-110); ANION GAP 9.8 MEQ/L (5-15); BLOOD UREA NITROGEN 14 mg/dL (9-20); CHLORIDE 106 mmol/L (98-107); Carbon Dioxide 25 mmol/L (22-30); Creatinine 1 0.94 mg/dL (0.66-1.25); Glucose 223 mg/dL (74-106); LIPASE 156 U/L (23-300); SGOT/AST 58 U/L (17-59); SGPT/ALT 36 U/L (0-50); SODIUM 137 mmol/L (137-145); Total Protein 7.5 g/dL (6.3-8.2)
[2018-12-25 01:54] LABS: Appearance CLEAR (CLEAR); Bilirubin NEGATIVE (NEGATIVE); Blood LARGE Ery/ul (0-5); Glucose >=500 mg/dL (NEGATIVE); Ketones NEGATIVE (NEGATIVE); Leukocyte Esterase NEGATIVE (NEGATIVE); Mucus SLIGHT /HPF (NEGATIVE); Nitrite NEGATIVE (NEGATIVE); Protein,Urine Dip NEGATIVE (Negative); RBC 51-100 /HPF (0-2); Specific Gravity 1.022 (1.005-1.025); Urobilinogen 4 mg/dL (0-1)
[2018-12-25 03:49] VITALS: BP 132/97; PULSE 104; O2SAT 97
--- NOTE | 2018-12-25 08:52 | XRAY ---
Indication: Chronic left abdominal pain. Hematuria. History cirrhosis. Multiple contiguous axial images obtained through the abdomen and pelvis without contrast using renal stone protocol. Comparison: November 18, 2018. Lung bases again demonstrates bibasilar atelectasis/scarring, less than before. Again no infiltrate or effusion. Heart is not enlarged. Stable tiny subcarinal and right infrahilar calcified nodes. Stable massive abdomen/pelvic ascites, cirrhotic liver, 19 cm splenomegaly, and left upper quadrant collateral vessels. Noncontrasted stomach and bowel loops appear nonobstructed again with scattered colonic diverticulosis and previous reported appendectomy. Stable nonobstructing bilateral renal micro-calculi. Remaining gallbladder, pancreas, spleen, adrenal glands, kidneys, ureters, and bladder appear unremarkable for noncontrast exam. Stable minimal aortic calcifications without AAA. Osseous structures intact again with lumbosacral junction degenerative disc disease. Impression: 1. Stable massive ascites with associated cirrhosis, splenomegaly, and left upper quadrant collateral vessels. 2. Stable nonobstructing bilateral renal micro-calculi and colonic diverticulosis. 3. No new intra-abdominal/pelvic abnormalities on this noncontrast exam. Comment: Preliminary interpretation was made by [facility]. No critical discrepancy. CT DI 27.56
== END 2018-12-25 03:52 | disposition home or self-care (01) ==
LOC: ED 00:07
DX: K70.31 Alcoholic cirrhosis of liver with ascites (principal); R10.12 Left upper quadrant pain; R31.9 Hematuria, unspecified; R00.0 Tachycardia, unspecified; E11.9 Type 2 diabetes mellitus without complications; M10.9 Gout, unspecified; B19.20 Unspecified viral hepatitis C without hepatic coma; Z79.899 Other long term (current) drug therapy
CPT/HCPCS: 36415; 74176; 80053; 81001; 82150; 83690; 85025; 96372; 99284; J1170; Q0162

== ENCOUNTER 2018-12-29 21:36 | Emergency (ER) | payer MEDICAID, OTHER ==
[2018-12-29 23:14] VITALS: O2SAT 100
[2018-12-29] MEDS ORDERED: Zofran 4 MG/2 ML VIAL IV ONE (23:35)
[2018-12-29] MEDS ORDERED: Hydromorphone 1 mg/ml Ampule IV ONE (23:35)
[2018-12-29] MEDS ORDERED: Sodium Chloride 0.9% 1000 ML 1,000 ML IV STA (23:35)
--- NOTE | 2018-12-29 23:35 | ERPHSYRPT ---
- History of Present Illness Time Seen by Provider: 12/29/18 23:30 Historian: patient, family Exam Limitations: no limitations Patient Subjective Stated Complaint: Abdominal pain Triage Nursing Assessment: Patient ambulated back to ED and transferred self to bed. Patient A+O X 3. Patient's skin jaundice, warm and dry. Patient complains of abdominal pain 07/24. Patient states he has Morphine 15 mg PO at home but hasn't taken any today for the fear of vomiting. Patient states he's not ate today. Patient's abdomen distended and hard with BS X 4. Patient denies having blood in stool. Patient states he had an loose stool and thought it was blood, but was just stool. Patient states Thursday December 27, 2018 but was unable to complete due to a fever. Patient states his next appointment his tomorrow. Physician History: pt is 43 yr old male in end stage liver failure now with severe abd pain and diffuse tenderness on exam - he failed to get his paracentesis for ascites yesterday due to fever; pt is scheduled for drainage again in am. Timing/Duration: today Activities at Onset: none Quality: sharpness, stabbing Abdominal Pain Onset Location: generalized abdomen Pain Radiation: no radiation Severity of Pain-Max: moderate Severity of Pain-Current: moderate Modifying Factors: Improves With: nothing Associated Symptoms: nausea, vomiting Previous symptoms: same symptoms as today, recently seen, recently treated Allergies/Adverse Reactions: tramadol Allergy (Mild, Verified 12/29/18 23:07) aspirin Allergy (Verified 12/29/18 23:07) bleeding TRIAZADONE Adverse Reaction (Mild, Uncoded 12/29/18 23:07) Nausea Home Medications: Furosemide 40 mg PO BID 11/18/18 [History] Lactulose 10 gm/15 ml [Enulose 10 GM/15 ML] 40 ml PO BID 11/18/18 [History ] Spironolactone 100 mg PO BID 11/18/18 [History] Ondansetron ODT 4 MG [Zofran Odt 4 mg] 4 mg PO STAT 11/29/18 [History] Morphine Sulfate [Morphine Sulfate ER] 15 mg PO DAILY 12/19/18 [History] Hx Tetanus, Diphtheria Vaccination/Date Given: Yes Hx Influenza Vaccination/Date Given: Yes Hx Pneumococcal Vaccination/Date Given: No Immunizations Up to Date: Yes - Review of Systems Constitutional: Fever, No Chills Eyes: No Symptoms Ears, Nose, & Throat: No Symptoms Respiratory: Cough, No Dyspnea Cardiac: No Chest Pain, No Edema, No Syncope Abdominal/Gastrointestinal: Abdominal Pain, Nausea, Vomiting, No Diarrhea Genitourinary Symptoms: No Dysuria Musculoskeletal: No Back Pain, No Neck Pain Skin: No Rash Neurological: No Dizziness, No Focal Weakness, No Sensory Changes Psychological: No Symptoms Endocrine: No Symptoms Hematologic/Lymphatic: No Symptoms Immunological/Allergic: No Symptoms All Other Systems: Reviewed and Negative - Past Medical History Pertinent Past Medical History: Yes Neurological History: No Pertinent History ENT History: No Pertinent History Cardiac History: No Pertinent History Respiratory History: No Pertinent History Endocrine Medical History: Diabetes Type II Musculoskeletal History: No Pertinent History GI Medical History: Cirrhosis, Other History: No Pertinent History Psycho-Social History: No Pertinent History Male Reproductive Disorders: No Pertinent History Other Medical History: GOUTY ARTHRITIS, hep c. liver failure - Past Surgical History Past Surgical History: Yes Neuro Surgical History: No Pertinent History Cardiac: No Pertinent History Respiratory: No Pertinent History Gastrointestinal: No Pertinent History Genitourinary: No Pertinent History Musculoskeletal: No Pertinent History Male Surgical History: No Pertinent History Other Surgical History: INGUINAL ABSCESS I&D - Social History Smoking Status: Current every day smoker How long have you smoked: 30 years Exposure to second hand smoke: Yes Alcohol Use: None Drug Use: none Patient Lives Alone: No Significant Family History: heart disease, diabetes - Nursing Vital Signs Nursing Vital Signs: Initial Vital Signs Temperature 98.4 F 12/29/18 23:09 Pulse Rate 97 H 12/29/18 23:09 Respiratory Rate 20 12/29/18 23:09 Blood Pressure 113/90 12/29/18 23:09 O2 Sat by Pulse Oximetry 100 12/29/18 23:09 Pain Scale Pain Intensity 5 - Physical Exam General Appearance: no apparent distress, alert Eye Exam: PERRL/EOMI, eyes nml inspection Ears, Nose, Throat Exam: normal ENT inspection, pharynx normal, moist mucous membranes Neck Exam: normal inspection, non-tender, supple, full range of motion Respiratory Exam: normal breath sounds, lungs clear, No respiratory distress Cardiovascular Exam: regular rate/rhythm, normal heart sounds Gastrointestinal/Abdomen Exam: soft, No tenderness, No mass Rectal Exam: deferred Back Exam: normal inspection, normal range of motion, No CVA tenderness, No vertebral tenderness Extremity Exam: normal inspection, normal range of motion, pelvis stable Neurologic Exam: alert, oriented x 3, cooperative, normal mood/affect, nml cerebellar function, sensation nml, No motor deficits Skin Exam: normal color, warm, dry SpO2: 100 - Course Nursing assessment & vital signs reviewed: Yes EKG Interpreted by Me: Sinus Rhythm, NORMAL AXIS, 1st degree AV Block, Non- specific ST Changes - CT Exams Abdomen/Pelvis CT Interpretation: Tele-radiologist Report, Other (stable nonobs kidney stones, cirrhosis, severe acites but stable, and diverticulosis) Ordered Tests: Active Orders 24 hr Category Date Time Status EKG-ER Only STAT Care 12/29/18 23:06 Active IV Insertion STAT Care 12/29/18 23:35 Active NPO (ED) STAT Care 12/29/18 23:35 Active ABDOMEN AND PELVIS W/0 CONTRAS [CT] Stat Exams 12/29/18 23:36 Taken Lactic Acid Stat Lab 12/29/18 23:06 Completed Occult Blood, Other Screening Stat Lab 12/29/18 23:08 Uncollected Medication Summary Discontinued Medications Generic Name Dose Route Start Last Admin Trade Name Freq PRN Reason Stop Dose Admin Hydromorphone HCl 1 mg 12/29/18 23:35 12/30/18 00:20 Hydromorphone 1 Mg/Ml Ampule IV 12/29/18 23:36 1 mg STAT ONE Administration Hydromorphone HCl Confirm 12/30/18 00:17 Hydromorphone 1 Mg/Ml Ampule Administered 12/30/18 00:18 Dose 1 mg .ROUTE .STK-MED ONE Sodium Chloride 1,000 mls @ 999 mls/hr 12/29/18 23:35 12/30/18 00:21 Sodium Chloride 0.9% 1000 Ml IV 12/30/18 00:35 999 mls/hr .Q1H1M STA Administration Sodium Chloride Confirm 12/30/18 00:18 Sodium Chloride 0.9% 1000 Ml Administered 12/30/18 00:19 Dose 1,000 mls @ ud .ROUTE .STK-MED ONE Ondansetron HCl 4 mg 12/29/18 23:35 12/30/18 00:19 Zofran 4 Mg/2 Ml Vial IV 12/29/18 23:36 4 mg STAT ONE Administration Ondansetron HCl Confirm 12/30/18 00:17 Zofran 4 Mg/2 Ml Vial Administered 12/30/18 00:18 Dose 4 mg .ROUTE .STK-MED ONE Lab/Rad Data: Laboratory Result Diagrams 12/29/18 00:10 12/29/18 00:10 Laboratory Results 12/30/18 12/29/18 12/29/18 Range/Units 00:38 00:10 00:10 WBC (4.0-10.5) K/mm3 RBC (4.1-5.6) M/mm3 Hgb (12.5-18.0) gm/dl Hct (42-50) % MCV (78-100) fl MCH (26-32) pg MCHC (32-36) g/dl RDW (11.5-14.0) % Plt Count (150-450) K/mm3 MPV (6-9.5) fl Gran % (36.0-66.0) % Eos # (Auto) (0-0.5) Absolute Lymphs (auto) (1.0-4.6) Absolute Monos (auto) (0.0-1.3) Lymphocytes % (24.0-44.0) % Monocytes % (0.0-12.0) % Eosinophils % (0.00-5.0) % Basophils % (0.0-0.4) % Absolute Granulocytes (1.4-6.9) Basophils # (0-0.4) PT (8.83-12.87) SECONDS INR (0.8-3.0) Sodium 137 (137-145) mmol/L Potassium 4.0 (3.5-5.1) mmol/L Chloride 107 (98-107) mmol/L Carbon Dioxide 25 (22-30) mmol/L Anion Gap 9.0 (5-15) MEQ/L BUN 18 (9-20) mg/dL Creatinine 1.01 (0.66-1.25) mg/dL Estimated GFR > 60.0 ML/MIN Glucose 132 H (74-106) mg/dL Lactic Acid 1.8 (0.4-2.0) Calcium 8.5 (8.4-10.2) mg/dL Total Bilirubin 3.80 H (0.2-1.3) mg/dL AST 68 H (17-59) U/L ALT 38 (0-50) U/L Alkaline Phosphatase 149 H (38-126) U/L Ammonia 9 (9-30) umol/L Serum Total Protein 7.9 (6.3-8.2) g/dL Albumin 2.8 L (3.5-5.0) g/dL Lipase (23-300) U/L 12/29/18 12/29/18 12/29/18 Range/Units 00:10 00:10 00:10 WBC 3.4 L (4.0-10.5) K/mm3 RBC 3.13 L (4.1-5.6) M/mm3 Hgb 11.4 L (12.5-18.0) gm/dl Hct 32.1 L (42-50) % MCV 102.6 H (78-100) fl MCH 36.4 H (26-32) pg MCHC 35.5 (32-36) g/dl RDW 13.5 (11.5-14.0) % Plt Count 71 L (150-450) K/mm3 MPV 10.6 H (6-9.5) fl Gran % 72.0 H (36.0-66.0) % Eos # (Auto) 0.07 (0-0.5) Absolute Lymphs (auto) 0.47 L (1.0-4.6) Absolute Monos (auto) 0.39 (0.0-1.3) Lymphocytes % 14.0 L (24.0-44.0) % Monocytes % 11.6 (0.0-12.0) % Eosinophils % 2.1 (0.00-5.0) % Basophils % 0.3 (0.0-0.4) % Absolute Granulocytes 2.42 (1.4-6.9) Basophils # 0.01 (0-0.4) PT 18.9 H (8.83-12.87) SECONDS INR 1.62 (0.8-3.0) Sodium (137-145) mmol/L Potassium (3.5-5.1) mmol/L Chloride (98-107) mmol/L Carbon Dioxide (22-30) mmol/L Anion Gap (5-15) MEQ/L BUN (9-20) mg/dL Creatinine (0.66-1.25) mg/dL Estimated GFR ML/MIN Glucose (74-106) mg/dL Lactic Acid (0.4-2.0) Calcium (8.4-10.2) mg/dL Total Bilirubin (0.2-1.3) mg/dL AST (17-59) U/L ALT (0-50) U/L Alkaline Phosphatase (38-126) U/L Ammonia (9-30) umol/L Serum Total Protein (6.3-8.2) g/dL Albumin (3.5-5.0) g/dL Lipase 179 (23-300) U/L - Progress Progress: improved, re-examined Progress Note: 12/30/18 01:53 pt is feeling much better and will go to his pericentesis this morning for definitive care - stable VS, no signs of infections; he wishes DC without furhter interventions in ER tonight Counseled pt/family regarding: lab results, diagnosis, need for follow-up, rad results - Departure Time of Disposition: 01:55 Departure Disposition: Home Clinical Impression: Ascites due to alcoholic cirrhosis, resolved abd pain Condition: Good Critical Care Time: No Referrals: ANSLEY GARRETT [Primary Care Provider] - Instructions: Fluid in the Belly (Ascites) (DC) Additional Instructions: go to your appointment this morning for treatment of your ascites; return meantime or anytime if any further concerns - followup with your liver doctors as planned.
[2018-12-30] MEDS ORDERED: Zofran 4 MG/2 ML VIAL ONE (00:17)
[2018-12-30] MEDS ORDERED: Hydromorphone 1 mg/ml Ampule ONE ×2 (00:17→02:14)
[2018-12-30] MEDS ORDERED: Sodium Chloride 0.9% 1000 ML 1,000 ML ONE (00:18)
[2018-12-30 00:31] LABS: BASOPHIL % 0.3 % (0.0-0.4); Basophil (Absolute #) 0.01 (0-0.4); Eosinophil % 2.1 % (0.00-5.0); Eosinophil (Absolute #) 0.07 (0-0.5); Granulocyte Absolute (ANC) 2.42 (1.4-6.9); Hematocrit 32.1 % (42-50); Hemoglobin 11.4 gm/dl (12.5-18.0); Lymphocyte (Absolute #) 0.47 (1.0-4.6); Mean Cell Volume 102.6 fl (78-100); Mean Corpuscular Hemoglobin 36.4 pg (26-32); Mean Corpuscular Hgb Concent. 35.5 g/dl (32-36); Mean Platelet Volume 10.6 fl (6-9.5); Monocyte (Absolute #) 0.39 (0.0-1.3); Monocytes % 11.6 % (0.0-12.0); Platelet Count 71 K/mm3 (150-450); Red Blood Count 3.13 M/mm3 (4.1-5.6); Red Cell Distribution Width 13.5 % (11.5-14.0); White Blood Count 3.4 K/mm3 (4.0-10.5)
[2018-12-30 00:38] LABS: INR 1.62 (0.8-3.0); PROTIME 18.9 SECONDS (8.83-12.87)
[2018-12-30 00:49] LABS: ALBUMIN 2.8 g/dL (3.5-5.0); ALKALINE PHOSPHATASE 149 U/L (38-126); BLOOD UREA NITROGEN 18 mg/dL (9-20); CHLORIDE 107 mmol/L (98-107); Calcium 8.5 mg/dL (8.4-10.2); Carbon Dioxide 25 mmol/L (22-30); Creatinine 1 1.01 mg/dL (0.66-1.25); Glucose 132 mg/dL (74-106); SGOT/AST 68 U/L (17-59); SGPT/ALT 38 U/L (0-50); SODIUM 137 mmol/L (137-145); Total Protein 7.9 g/dL (6.3-8.2)
[2018-12-30] MEDS ORDERED: Hydromorphone 1 mg/ml Ampule IV ONE (01:57)
[2018-12-30 02:23] VITALS: BP 110/77; PULSE 101
[2018-12-30 02:49] LABS: Slide Review 1 YES
--- NOTE | 2018-12-30 09:21 | XRAY ---
Indication: Abdomen pain. Ascites. History stage IV hepatic failure. Multiple contiguous axial images obtained through the abdomen and pelvis without contrast using as ordered renal stone protocol. Comparison: November 18 and December 25, 2018. Lung bases again demonstrates bibasilar atelectasis/scarring. Again no infiltrate or effusion. Heart is not enlarged. Stable massive abdomen/pelvic ascites, cirrhotic liver, 19 cm splenomegaly, and left upper quadrant collateral vessels. Noncontrasted stomach and bowel loops appear nonobstructed again with scattered colonic diverticulosis and previous reported appendectomy. Stable nonobstructing bilateral renal micro-calculi. Remaining gallbladder, pancreas, spleen, adrenal glands, kidneys, ureters, and bladder appear unremarkable for noncontrast exam. Stable minimal aortic calcifications without AAA. Osseous structures intact again with lumbosacral junction degenerative disc disease. Impression: 1. Stable massive ascites with associated cirrhosis, splenomegaly, and left upper quadrant collateral vessels. 2. Stable nonobstructing bilateral renal micro-calculi and colonic diverticulosis. 3. No new intra-abdominal/pelvic abnormalities on this noncontrast exam. Comment: Preliminary interpretation was made by [facility]. No critical discrepancy. CT DI 23.14
== END 2018-12-30 02:27 | disposition home or self-care (01) ==
LOC: ED 21:36
DX: K70.31 Alcoholic cirrhosis of liver with ascites (principal); K72.90 Hepatic failure, unspecified without coma; Z79.899 Other long term (current) drug therapy; E11.9 Type 2 diabetes mellitus without complications; M10.9 Gout, unspecified
CPT/HCPCS: 36000; 36415; 74176; 80053; 82140; 83605; 83690; 85025; 85610; 93005; 96360; 96374; 96375; 96376; 99284; J1170; J2405

== ENCOUNTER 2019-01-13 12:28 | Emergency (ER) | payer OTHER ==
[2019-01-13 13:05] LABS: BASOPHIL % 0.3 % (0.0-0.4); Basophil (Absolute #) 0.01 (0-0.4); Eosinophil % 2.5 % (0.00-5.0); Eosinophil (Absolute #) 0.08 (0-0.5); Granulocyte Absolute (ANC) 2.29 (1.4-6.9); Granulocytes % 71.3 % (36.0-66.0); Hematocrit 30.2 % (42-50); Lymphocyte (Absolute #) 0.49 (1.0-4.6); Lymphocytes % 15.3 % (24.0-44.0); Mean Cell Volume 102.4 fl (78-100); Mean Corpuscular Hgb Concent. 36.4 g/dl (32-36); Mean Platelet Volume 10.5 fl (6-9.5); Monocyte (Absolute #) 0.34 (0.0-1.3); Monocytes % 10.6 % (0.0-12.0); Platelet Count 61 K/mm3 (150-450); Red Blood Count 2.95 M/mm3 (4.1-5.6); Red Cell Distribution Width 14.2 % (11.5-14.0); White Blood Count 3.2 K/mm3 (4.0-10.5)
[2019-01-13 13:10] LABS: Mean Corpuscular Hemoglobin 37.2 pg (26-32)
[2019-01-13] MEDS ORDERED: Zofran 4 MG/2 ML VIAL ONE (13:10)
--- NOTE | 2019-01-13 13:11 | ERPHSYRPT ---
- History of Present Illness Time Seen by Provider: 01/13/19 12:50 Historian: patient Exam Limitations: no limitations Patient Subjective Stated Complaint: pt here for chronic abd pain he states it [place] Triage Nursing Assessment: pt alert, resp easy, skin w/d/p. abd large and distended, firm, which is normal for pt Physician History: Pt started c/o abdominal distension, pain after having [place] meal today, nauseated, denies vomiting, fever, chills, diarrhea or other complaints. He has a history of Ascites, Chr. alcoholic hepatitis, he is being follow by [facility] in [facility]. His ascites was tapped a week ago at [facility] a week ago ( 10 lites) and 4 days later in [facility] (12 liters). He states, he staopped taking long acting Morphine 2 weeks ago, because it made him nauseated. Timing/Duration: hour(s) (2) Activities at Onset: none Quality: cramping, sharpness Abdominal Pain Onset Location: generalized abdomen Pain Radiation: no radiation Severity of Pain-Max: severe Severity of Pain-Current: severe Modifying Factors: Improves With: nothing Associated Symptoms: nausea Previous symptoms: same symptoms as today Allergies/Adverse Reactions: tramadol Allergy (Mild, Verified 01/13/19 12:32) aspirin Allergy (Verified 01/13/19 12:32) bleeding TRIAZADONE Adverse Reaction (Mild, Uncoded 01/13/19 12:32) Nausea Home Medications: Furosemide 40 mg PO BID 11/18/18 [History] Lactulose 10 gm/15 ml [Enulose 10 GM/15 ML] 40 ml PO BID 11/18/18 [History ] Spironolactone 100 mg PO BID 11/18/18 [History] Ondansetron ODT 4 MG [Zofran Odt 4 mg] 4 mg PO STAT 11/29/18 [History] Morphine Sulfate [Morphine Sulfate ER] 15 mg PO DAILY 12/19/18 [History] Hx Tetanus, Diphtheria Vaccination/Date Given: Yes Hx Influenza Vaccination/Date Given: Yes Hx Pneumococcal Vaccination/Date Given: No - Review of Systems Constitutional: No Symptoms Ears, Nose, & Throat: No Symptoms Respiratory: No Symptoms Cardiac: No Symptoms Abdominal/Gastrointestinal: Abdominal Pain, Nausea Musculoskeletal: No Symptoms Skin: No Symptoms All Other Systems: Reviewed and Negative - Past Medical History Pertinent Past Medical History: Yes Neurological History: No Pertinent History ENT History: No Pertinent History Cardiac History: No Pertinent History Respiratory History: No Pertinent History Endocrine Medical History: Diabetes Type II Musculoskeletal History: No Pertinent History GI Medical History: Cirrhosis, Other History: No Pertinent History Psycho-Social History: No Pertinent History Male Reproductive Disorders: No Pertinent History Other Medical History: GOUTY ARTHRITIS, hep c. liver failure - Past Surgical History Past Surgical History: Yes Neuro Surgical History: No Pertinent History Cardiac: No Pertinent History Respiratory: No Pertinent History Gastrointestinal: No Pertinent History Genitourinary: No Pertinent History Musculoskeletal: No Pertinent History Male Surgical History: No Pertinent History Other Surgical History: INGUINAL ABSCESS I&D - Social History Smoking Status: Current every day smoker How long have you smoked: 30 years Exposure to second hand smoke: Yes Alcohol Use: None Drug Use: none Patient Lives Alone: No Significant Family History: heart disease, diabetes - Nursing Vital Signs Nursing Vital Signs: Initial Vital Signs Temperature 97.8 F 01/13/19 12:33 Pulse Rate 106 H 01/13/19 12:33 Respiratory Rate 20 01/13/19 12:33 Blood Pressure 125/91 01/13/19 12:33 O2 Sat by Pulse Oximetry 95 01/13/19 12:33 Pain Scale Pain Intensity 9 - Physical Exam General Appearance: no apparent distress Eye Exam: eyes nml inspection Ears, Nose, Throat Exam: normal ENT inspection, pharynx normal Neck Exam: normal inspection, non-tender, supple, No carotid bruit, No JVD Respiratory Exam: normal breath sounds, chest tenderness, lungs clear Cardiovascular Exam: regular rate/rhythm, normal heart sounds, normal peripheral pulses, edema (1-2 + both ankles), No murmur Gastrointestinal/Abdomen Exam: soft, tenderness (generalized), distention, No guarding, No ecchymosis, No pulsatile mass, No rebound, No hernia Back Exam: normal inspection, No CVA tenderness Extremity Exam: normal inspection Neurologic Exam: alert, oriented x 3, cooperative, normal mood/affect Skin Exam: normal color, warm, dry, No rash Lymphatic Exam: No adenopathy SpO2 Interpretation: normal SpO2: 95 O2 Delivery: Room Air Ordered Tests: Active Orders 24 hr Category Date Time Status ABDOMEN AND PELVIS W/0 CONTRAS [CT] Stat Exams 01/13/19 13:05 Completed CBC W DIFF Stat Lab 01/13/19 13:00 Completed CMP Stat Lab 01/13/19 13:00 Completed LIPASE Stat Lab 01/13/19 13:00 Completed PROTIME WITH INR Stat Lab 01/13/19 13:00 Completed UA W/RFX UR CULTURE Stat Lab 01/13/19 13:30 Completed Urine Triage Profile Stat Lab 01/13/19 13:30 Completed Medication Summary Discontinued Medications Generic Name Dose Route Start Last Admin Trade Name Ruth Ann PRN Reason Stop Dose Admin Fentanyl Citrate 75 mcg 01/13/19 13:25 01/13/19 13:31 Fentanyl 500 Mcg/10 Ml Vial IV 01/13/19 13:26 Not Given NOW ONE Fentanyl Citrate 75 mcg 01/13/19 13:29 01/13/19 13:34 Sublimaze 100 Mcg/2 Ml IV 01/13/19 13:30 75 mcg STAT ONE Administration Fentanyl Citrate Confirm 01/13/19 13:31 Sublimaze 100 Mcg/2 Ml Administered 01/13/19 13:32 Dose 100 mcg .ROUTE .STK-MED ONE Morphine Sulfate 4 mg 01/13/19 14:18 01/13/19 14:31 Morphine Sulfate 4 Mg Inj IV 01/13/19 14:19 4 mg STAT ONE Administration Morphine Sulfate Confirm 01/13/19 14:26 Morphine Sulfate 4 Mg Inj Administered 01/13/19 14:27 Dose 4 mg .ROUTE .STK-MED ONE Ondansetron HCl 4 mg 01/13/19 13:06 01/13/19 13:13 Zofran 4 Mg/2 Ml Vial IV 01/13/19 13:07 4 mg STAT ONE Administration Ondansetron HCl Confirm 01/13/19 13:10 Zofran 4 Mg/2 Ml Vial Administered 01/13/19 13:11 Dose 4 mg .ROUTE .STK-MED ONE Lab/Rad Data: Laboratory Result Diagrams 01/13/19 13:00 01/13/19 13:00 Laboratory Results 01/13/19 01/13/19 01/13/19 Range/Units 13:30 13:30 13:00 WBC (4.0-10.5) K/mm3 RBC (4.1-5.6) M/mm3 Hgb (12.5-18.0) gm/dl Hct (42-50) % MCV (78-100) fl MCH (26-32) pg MCHC (32-36) g/dl RDW (11.5-14.0) % Plt Count (150-450) K/mm3 MPV (6-9.5) fl Gran % (36.0-66.0) % Eos # (Auto) (0-0.5) Absolute Lymphs (auto) (1.0-4.6) Absolute Monos (auto) (0.0-1.3) Lymphocytes % (24.0-44.0) % Monocytes % (0.0-12.0) % Eosinophils % (0.00-5.0) % Basophils % (0.0-0.4) % Absolute Granulocytes (1.4-6.9) Basophils # (0-0.4) PT 19.5 H (8.83-12.87) SECONDS INR 1.67 (0.8-3.0) Sodium (137-145) mmol/L Potassium (3.5-5.1) mmol/L Chloride (98-107) mmol/L Carbon Dioxide (22-30) mmol/L Anion Gap (5-15) MEQ/L BUN (9-20) mg/dL Creatinine (0.66-1.25) mg/dL Estimated GFR ML/MIN Glucose (74-106) mg/dL Calcium (8.4-10.2) mg/dL Total Bilirubin (0.2-1.3) mg/dL AST (17-59) U/L ALT (0-50) U/L Alkaline Phosphatase (38-126) U/L Serum Total Protein (6.3-8.2) g/dL Albumin (3.5-5.0) g/dL Lipase (23-300) U/L Urine Color CAROLANN (YELLOW) Urine Appearance CLEAR (CLEAR) Urine pH 5.0 (5-6) Ur Specific [place] 1.024 (1.005-1.025) Urine Protein NEGATIVE (Negative) Urine Ketones NEGATIVE (NEGATIVE) Urine Blood SMALL (0-5) Ludwig/ul Urine Nitrite NEGATIVE (NEGATIVE) Urine Bilirubin NEGATIVE (NEGATIVE) Urine Urobilinogen 4 (0-1) mg/dL Ur Leukocyte Esterase NEGATIVE (NEGATIVE) Urine WBC (Auto) 0-2 (0-5) /HPF Urine RBC (Auto) 6-10 (0-2) /HPF U Epithel Cells (Auto) NONE (FEW) /HPF Urine Mucus (Auto) SLIGHT (NEGATIVE) /HPF Urine Culture Reflexed NO (NO) Urine Glucose 50 (NEGATIVE) mg/dL Urine Opiates Level NEGATIVE (NEGATIVE) Ur Methadone NEGATIVE (NEGATIVE) Urine Barbiturates NEGATIVE (NEGATIVE) Ur Phencyclidine (PCP) NEGATIVE (NEGATIVE) Urine Amphetamine NEGATIVE (NEGATIVE) U Benzodiazepine Level NEGATIVE (NEGATIVE) Urine Cocaine NEGATIVE (NEGATIVE) Urine Marijuana (THC) NEGATIVE (NEGATIVE) Slides for Path Review 01/13/19 01/13/19 Range/Units 13:00 13:00 WBC 3.2 L (4.0-10.5) K/mm3 RBC 2.95 L (4.1-5.6) M/mm3 Hgb 11.0 L (12.5-18.0) gm/dl Hct 30.2 L (42-50) % MCV 102.4 H (78-100) fl MCH 37.2 H (26-32) pg MCHC 36.4 H (32-36) g/dl RDW 14.2 H (11.5-14.0) % Plt Count 61 L (150-450) K/mm3 MPV 10.5 H (6-9.5) fl Gran % 71.3 H (36.0-66.0) % Eos # (Auto) 0.08 (0-0.5) Absolute Lymphs (auto) 0.49 L (1.0-4.6) Absolute Monos (auto) 0.34 (0.0-1.3) Lymphocytes % 15.3 L (24.0-44.0) % Monocytes % 10.6 (0.0-12.0) % Eosinophils % 2.5 (0.00-5.0) % Basophils % 0.3 (0.0-0.4) % Absolute Granulocytes 2.29 (1.4-6.9) Basophils # 0.01 (0-0.4) PT (8.83-12.87) SECONDS INR (0.8-3.0) Sodium 135 L (137-145) mmol/L Potassium 4.5 (3.5-5.1) mmol/L Chloride 107 (98-107) mmol/L Carbon Dioxide 21 L (22-30) mmol/L Anion Gap 10.8 (5-15) MEQ/L BUN 19 (9-20) mg/dL Creatinine 0.97 (0.66-1.25) mg/dL Estimated GFR > 60.0 ML/MIN Glucose 263 H (74-106) mg/dL Calcium 8.7 (8.4-10.2) mg/dL Total Bilirubin 1.90 H (0.2-1.3) mg/dL AST 56 (17-59) U/L ALT 33 (0-50) U/L Alkaline Phosphatase 186 H (38-126) U/L Serum Total Protein 7.2 (6.3-8.2) g/dL Albumin 2.6 L (3.5-5.0) g/dL Lipase 300 (23-300) U/L Urine Color (YELLOW) Urine Appearance (CLEAR) Urine pH (5-6) Ur Specific [place] (1.005-1.025) Urine Protein (Negative) Urine Ketones (NEGATIVE) Urine Blood (0-5) Ludwig/ul Urine Nitrite (NEGATIVE) Urine Bilirubin (NEGATIVE) Urine Urobilinogen (0-1) mg/dL Ur Leukocyte Esterase (NEGATIVE) Urine WBC (Auto) (0-5) /HPF Urine RBC (Auto) (0-2) /HPF U Epithel Cells (Auto) (FEW) /HPF Urine Mucus (Auto) (NEGATIVE) /HPF Urine Culture Reflexed (NO) Urine Glucose (NEGATIVE) mg/dL Urine Opiates Level (NEGATIVE) Ur Methadone (NEGATIVE) Urine Barbiturates (NEGATIVE) Ur Phencyclidine (PCP) (NEGATIVE) Urine Amphetamine (NEGATIVE) U Benzodiazepine Level (NEGATIVE) Urine Cocaine (NEGATIVE) Urine Marijuana (THC) (NEGATIVE) Slides for Path Review YES - Progress Progress: improved Progress Note: 01/13/19 14:42 Pt states, he feels better after iv Fentanyl and Morphin, no severe pain, nausea resolved, afebrile. He is going to be discharged to follow up with his pain management in 2-3 days. Counseled pt/family regarding: lab results, diagnosis, need for follow-up, rad results - Departure Departure Disposition: Home Clinical Impression: Abdominal pain Qualifiers: Abdominal location: generalized Qualified Code(s): R10.84 - Generalized abdominal pain Ascites Qualifiers: Ascites type: due to alcoholic cirrhosis Qualified Code(s): K70.31 - Alcoholic cirrhosis of liver with ascites Condition: Stable Critical Care Time: No Referrals: ANSLEY GARRETT [Primary Care Provider] - Additional Instructions: Rest x 2-3 days, follow up with your physician and pain management in 2-3 days, return if severe pain, vomiting, fever> 102 F or difficulty breathing!
[2019-01-13 13:12] LABS: INR 1.67 (0.8-3.0); PROTIME 19.5 SECONDS (8.83-12.87)
[2019-01-13] MEDS: Zofran 4 MG/2 ML VIAL IV ONE (13:13)
[2019-01-13 13:17] LABS: ALBUMIN 2.6 g/dL (3.5-5.0); ALKALINE PHOSPHATASE 186 U/L (38-126); ANION GAP 10.8 MEQ/L (5-15); BLOOD UREA NITROGEN 19 mg/dL (9-20); CHLORIDE 107 mmol/L (98-107); Calcium 8.7 mg/dL (8.4-10.2); Carbon Dioxide 21 mmol/L (22-30); Creatinine 1 0.97 mg/dL (0.66-1.25); Glucose 263 mg/dL (74-106); LIPASE 300 U/L (23-300); Potassium 4.5 mmol/L (3.5-5.1); SGOT/AST 56 U/L (17-59); SGPT/ALT 33 U/L (0-50); SODIUM 135 mmol/L (137-145); Total Protein 7.2 g/dL (6.3-8.2)
[2019-01-13] MEDS ORDERED: SUBLIMAZE 100 MCG/2 ML ONE (13:31)
[2019-01-13] MEDS: FENTANYL 500 MCG/10 ML VIAL IV ONE (13:31)
[2019-01-13] MEDS: SUBLIMAZE 100 MCG/2 ML IV ONE (13:34)
[2019-01-13 13:41] LABS: Appearance CLEAR (CLEAR); Bilirubin NEGATIVE (NEGATIVE); Blood SMALL Ery/ul (0-5); Glucose 50 mg/dL (NEGATIVE); Ketones NEGATIVE (NEGATIVE); Leukocyte Esterase NEGATIVE (NEGATIVE); Mucus SLIGHT /HPF (NEGATIVE); Nitrite NEGATIVE (NEGATIVE); Protein,Urine Dip NEGATIVE (Negative); Specific Gravity 1.024 (1.005-1.025); Urobilinogen 4 mg/dL (0-1); WBC 0-2 /HPF (0-5)
--- NOTE | 2019-01-13 13:43 | XRAY ---
Indication: Abdomen pain, nausea, and distention. History stage IV hepatic failure. Multiple contiguous axial images obtained through the abdomen and pelvis without contrast as ordered. Comparison: Multiple priors most recent December 30, 2018. Lung bases demonstrates minimal left base atelectasis/scarring. No infiltrate or effusion. Heart is not enlarged. Stable massive abdomen/pelvic ascites, cirrhotic liver, 19 cm splenomegaly, and left upper quadrant collateral vessels. Stomach is distended with food. Noncontrasted stomach and bowel loops appear nonobstructed again with scattered colonic diverticulosis and previous reported appendectomy. Stable nonobstructing bilateral renal micro-calculi. Gallbladder contracted without gallstones. Remaining liver, gallbladder, pancreas, spleen, adrenal glands, kidneys, ureters, and bladder appear unremarkable for noncontrast exam. Stable minimal aortic calcifications without AAA. Impression: 1. Stable massive ascites, cirrhosis, splenomegaly, left upper quadrant collateral vessels, nonobstructing bilateral renal micro-calculi, and colonic diverticulosis as seen on November 18, December 25, and December 30, 2018 CT exams. 2. No new intra-abdominal/pelvic abnormalities on this noncontrast exam. CT DI 22.83
[2019-01-13 13:57] LABS: Amphetamine,Urine NEGATIVE (NEGATIVE); Barbiturate,Urine NEGATIVE (NEGATIVE); Benzodiazepine,Urine NEGATIVE (NEGATIVE); Cocaine,Urine NEGATIVE (NEGATIVE); Methadone,Urine NEGATIVE (NEGATIVE); Opiate,Urine NEGATIVE (NEGATIVE); PCP,Urine NEGATIVE (NEGATIVE); THC,Urine NEGATIVE (NEGATIVE)
[2019-01-13 14:03] LABS: Slide Review 1 YES
[2019-01-13] MEDS ORDERED: MORPHINE SULFATE 4 MG INJ ONE (14:26)
[2019-01-13] MEDS: MORPHINE SULFATE 4 MG INJ IV ONE (14:31)
[2019-01-13 14:59] VITALS: BP 136/74; PULSE 116; O2SAT 97
== END 2019-01-13 15:07 | disposition home or self-care (01) ==
LOC: ED 12:28
DX: R10.84 Generalized abdominal pain (principal); K70.31 Alcoholic cirrhosis of liver with ascites; Z79.899 Other long term (current) drug therapy
CPT/HCPCS: 36000; 36415; 74176; 80053; 80307; 81001; 83690; 85025; 85610; 96374; 96375; 99284; J2270; J2405; J3010

== ENCOUNTER 2019-01-30 18:03 | Emergency (ER) | payer OTHER ==
--- NOTE | 2019-01-30 18:08 | ERPHSYRPT ---
- History of Present Illness Time Seen by Provider: 01/30/19 18:05 Historian: patient, family Exam Limitations: no limitations Physician History: 43 y/o white male known well to this ED and this physician. pt has alcoholic cirrhosis and presents with recurrent abd pain and intraabd ascites. pt has been seen at [facility] for scheduled paracentesis each week. pt had a complete work up on 01/13/[address] scan abd/pelvis. in addition, he has had workup including ct scan abd/pelvis twice within the last week. pt does not want another work up. he would like pain control tonight so he can get through until tomorrow for repeat paracentesis at [facility]. he has been to Liver transplant service there. he is leaving at 0630 in the am. pt sees a pain management doctor. Timing/Duration: today Quality: fullness, pressure Abdominal Pain Onset Location: generalized abdomen Severity of Pain-Max: moderate Severity of Pain-Current: moderate Modifying Factors: Improves With: nothing Associated Symptoms: other (abd pain) Previous symptoms: same symptoms as today Allergies/Adverse Reactions: tramadol Allergy (Mild, Verified 01/30/19 18:20) aspirin Allergy (Verified 01/30/19 18:20) bleeding TRIAZADONE Adverse Reaction (Mild, Uncoded 01/30/19 18:20) Nausea Home Medications: Furosemide 40 mg PO BID 11/18/18 [History] Lactulose 10 gm/15 ml [Enulose 10 GM/15 ML] 40 ml PO BID 11/18/18 [History ] Spironolactone 100 mg PO BID 11/18/18 [History] Ondansetron ODT 4 MG [Zofran Odt 4 mg] 4 mg PO STAT 11/29/18 [History] Morphine Sulfate [Morphine Sulfate ER] 15 mg PO DAILY 12/19/18 [History] Hx Tetanus, Diphtheria Vaccination/Date Given: Yes Hx Influenza Vaccination/Date Given: Yes Hx Pneumococcal Vaccination/Date Given: No - Review of Systems Constitutional: No Symptoms Eyes: No Symptoms Ears, Nose, & Throat: No Symptoms Respiratory: No Symptoms Cardiac: No Symptoms Abdominal/Gastrointestinal: Abdominal Pain Genitourinary Symptoms: No Symptoms Musculoskeletal: No Symptoms Skin: No Symptoms Psychological: No Symptoms Endocrine: No Symptoms Hematologic/Lymphatic: No Symptoms Immunological/Allergic: No Symptoms - Past Medical History Pertinent Past Medical History: Yes Neurological History: No Pertinent History ENT History: No Pertinent History Cardiac History: No Pertinent History Respiratory History: No Pertinent History Endocrine Medical History: Diabetes Type II Musculoskeletal History: No Pertinent History GI Medical History: Cirrhosis, Other History: No Pertinent History Psycho-Social History: No Pertinent History Male Reproductive Disorders: No Pertinent History Other Medical History: GOUTY ARTHRITIS, hep c. liver failure - Past Surgical History Past Surgical History: Yes Neuro Surgical History: No Pertinent History Cardiac: No Pertinent History Respiratory: No Pertinent History Gastrointestinal: No Pertinent History Genitourinary: No Pertinent History Musculoskeletal: No Pertinent History Male Surgical History: No Pertinent History Other Surgical History: INGUINAL ABSCESS I&D - Social History Smoking Status: Current every day smoker How long have you smoked: 30 years Exposure to second hand smoke: Yes Alcohol Use: None Drug Use: none Patient Lives Alone: No Significant Family History: heart disease, diabetes - Nursing Vital Signs Nursing Vital Signs: Initial Vital Signs Temperature 97.4 F 01/30/19 18:13 Pulse Rate 109 H 01/30/19 18:13 Respiratory Rate 24 01/30/19 18:13 Blood Pressure 121/84 01/30/19 18:13 O2 Sat by Pulse Oximetry 99 01/30/19 18:13 Pain Scale Pain Intensity 9 - Physical Exam General Appearance: mild distress, alert, anxiety Eye Exam: PERRL/EOMI, scleral icterus Ears, Nose, Throat Exam: normal ENT inspection, moist mucous membranes Neck Exam: normal inspection, non-tender, supple, full range of motion Respiratory Exam: normal breath sounds, lungs clear, airway intact, No chest tenderness, No respiratory distress, No diminished breath sounds Cardiovascular Exam: normal heart sounds, normal peripheral pulses, tachycardia (mild) Gastrointestinal/Abdomen Exam: tenderness (mild), distention (significant), other (significant intraabd ascites) Rectal Exam: not done Back Exam: normal inspection, normal range of motion, No CVA tenderness, No vertebral tenderness Extremity Exam: pedal edema (bilat feet and ankles) Skin Exam: warm, dry, jaundice Lymphatic Exam: No adenopathy SpO2 Interpretation: normal O2 Delivery: Room Air - Progress Progress: unchanged Progress Note: 01/30/19 18:31 pt, pts spouse and i had extensive discussion regarding workup today. pt refuses because he has had several in last 3 weeks. he is only wanting pain control over night to get him through the night until 0630. i have reviewed the most recent work ups here and they have typically shown same issue with recurrent ascites. pt most often has been let go home. pt has mild tachycardia with hr 98-110. that is typical for him. room air 99%. rr 18-24. i think this is reasonable in this pt. 01/30/19 18:35 Counseled pt/family regarding: diagnosis, need for follow-up - Departure Departure Disposition: Home Clinical Impression: Recurrent abdominal pain, Ascites due to alcoholic cirrhosis Condition: Stable Critical Care Time: No Referrals: ANSLEY GARRETT [Primary Care Provider] - Additional Instructions: keep your appointment at [facility] tomorrow morning.
[2019-01-30 18:19] VITALS: BP 121/84; PULSE 109; O2SAT 99
[2019-01-30] MEDS ORDERED: Zofran 4 MG/2 ML VIAL IV ONE (18:39)
[2019-01-30] MEDS ORDERED: Hydromorphone 1 mg/ml Ampule IV ONE (18:39)
[2019-01-30] MEDS ORDERED: Zofran 4 MG/2 ML VIAL ONE (18:45)
[2019-01-30] MEDS ORDERED: Hydromorphone 1 mg/ml Ampule ONE (18:46)
== END 2019-01-30 19:13 | disposition home or self-care (01) ==
LOC: ED 18:03
DX: R10.9 Unspecified abdominal pain (principal); K70.31 Alcoholic cirrhosis of liver with ascites; Z79.899 Other long term (current) drug therapy; E11.9 Type 2 diabetes mellitus without complications; M10.9 Gout, unspecified
CPT/HCPCS: 36000; 96374; 96375; 99284; J1170; J2405

== ENCOUNTER 2019-02-02 16:51 | Emergency (ER) | payer OTHER ==
[2019-02-02] MEDS ORDERED: DILAUDID 2 MG INJECTION IV STA (18:56)
[2019-02-02] MEDS ORDERED: Hydromorphone 1 mg/ml Ampule ONE (19:16)
[2019-02-02] MEDS ORDERED: Zofran 4 MG/2 ML VIAL IV ONE (19:22)
[2019-02-02] MEDS ORDERED: Zofran 4 MG/2 ML VIAL ONE (19:22)
[2019-02-02 19:58] VITALS: O2SAT 99
[2019-02-02] MEDS ORDERED: BENADRYL 25 MG CAPSULE PO ONE (20:38)
[2019-02-02] MEDS ORDERED: BENADRYL 25 MG CAPSULE ONE ×2 (20:43→20:46)
[2019-02-02 21:02] VITALS: BP 107/84; PULSE 87
--- NOTE | 2019-02-02 21:02 | ERPHSYRPT ---
- History of Present Illness Historian: patient Exam Limitations: no limitations Patient Subjective Stated Complaint: states had abdomen tapped for ascites two days ago and had 10 L removed from abd. states woke up this am and feels very bloated again and states he knows he needs to be tapped again. states abd hurts and pain radiates to lower back. states he is not taking lactulose because he doesn't want to have to sit in the bathroom all day. also states he had ham for easter dinner today. states "I know i'm not supposed to eat that but i couldn't pass it up". also states "i didn't take my meds today yet because i got up late". Triage Nursing Assessment: to room per w/c. skin w/d, color sallow. resp nonlabored. patient abd very large and firm. tender to touch. Physician History: Pt is a 43 y/o male with a h/o ESLD with ascites. He is working with [facility] to be qualified for liver transplant. He had parecentesis done on Sunday. 10 lit were removed. Today the pt came to the ED, because his abdomen is extremely distended, and painful. Pt is at his baseline, and has no other complains. Timing/Duration: today Activities at Onset: none Quality: fullness, pressure Abdominal Pain Onset Location: generalized abdomen Severity of Pain-Max: moderate Severity of Pain-Current: moderate Modifying Factors: Improves With: analgesics Associated Symptoms: denies symptoms Previous symptoms: same symptoms as today Allergies/Adverse Reactions: tramadol Allergy (Mild, Verified 02/02/19 17:08) acetaminophen [From Tylenol] Allergy (Verified 02/02/19 17:08) aspirin Allergy (Verified 02/02/19 17:08) bleeding Home Medications: Furosemide 40 mg PO BID 11/18/18 [History] Lactulose 10 gm/15 ml [Enulose 10 GM/15 ML] 40 ml PO BID 11/18/18 [History ] Spironolactone 100 mg PO BID 11/18/18 [History] Hx Tetanus, Diphtheria Vaccination/Date Given: Yes Hx Influenza Vaccination/Date Given: No Hx Pneumococcal Vaccination/Date Given: No - Review of Systems Constitutional: No Fever, No Chills Eyes: No Symptoms Ears, Nose, & Throat: No Symptoms Respiratory: No Cough, No Dyspnea Cardiac: No Chest Pain, No Edema, No Syncope Abdominal/Gastrointestinal: Abdominal Pain, Other (ESLD) Genitourinary Symptoms: No Dysuria Musculoskeletal: No Back Pain, No Neck Pain Skin: No Rash Neurological: No Dizziness, No Focal Weakness, No Sensory Changes - Past Medical History Pertinent Past Medical History: Yes Neurological History: No Pertinent History ENT History: No Pertinent History Cardiac History: No Pertinent History Respiratory History: No Pertinent History Endocrine Medical History: Diabetes Type II Musculoskeletal History: No Pertinent History GI Medical History: Cirrhosis, Other History: No Pertinent History Psycho-Social History: No Pertinent History Male Reproductive Disorders: No Pertinent History Other Medical History: GOUTY ARTHRITIS, hep c. liver failure - Past Surgical History Past Surgical History: Yes Neuro Surgical History: No Pertinent History Cardiac: No Pertinent History Respiratory: No Pertinent History Gastrointestinal: No Pertinent History Genitourinary: No Pertinent History Musculoskeletal: No Pertinent History Male Surgical History: No Pertinent History Other Surgical History: INGUINAL ABSCESS I&D - Social History Smoking Status: Current every day smoker How long have you smoked: 30 years Exposure to second hand smoke: Yes Alcohol Use: None Drug Use: none Patient Lives Alone: No Significant Family History: heart disease, diabetes - Nursing Vital Signs Nursing Vital Signs: Initial Vital Signs Temperature 98 F 02/02/19 16:57 Pulse Rate 102 H 02/02/19 16:57 Respiratory Rate 18 02/02/19 16:57 Blood Pressure 127/86 02/02/19 16:57 O2 Sat by Pulse Oximetry 100 02/02/19 16:57 Pain Scale Pain Intensity 10 - Physical Exam General Appearance: mild distress Eye Exam: PERRL/EOMI, eyes nml inspection Ears, Nose, Throat Exam: normal ENT inspection, pharynx normal, moist mucous membranes Neck Exam: normal inspection, non-tender, supple, full range of motion Respiratory Exam: normal breath sounds, lungs clear, No respiratory distress Cardiovascular Exam: regular rate/rhythm, normal heart sounds Gastrointestinal/Abdomen Exam: distention, other (Ascites) Extremity Exam: normal inspection, normal range of motion, pelvis stable Neurologic Exam: alert, oriented x 3, cooperative, normal mood/affect, nml cerebellar function, sensation nml, No motor deficits SpO2: 99 - Course Nursing assessment & vital signs reviewed: Yes Ordered Tests: Medication Summary Discontinued Medications Generic Name Dose Route Start Last Admin Trade Name Freq PRN Reason Stop Dose Admin Diphenhydramine HCl 50 mg 02/02/19 20:38 02/02/19 20:44 Benadryl 25 Mg Capsule PO 02/02/19 20:39 50 mg STAT ONE Administration Diphenhydramine HCl Confirm 02/02/19 20:43 Benadryl 25 Mg Capsule Administered 02/02/19 20:44 Dose 50 mg .ROUTE .STK-MED ONE Diphenhydramine HCl Confirm 02/02/19 20:46 Benadryl 25 Mg Capsule Administered 02/02/19 20:47 Dose 25 mg .ROUTE .STK-MED ONE Hydromorphone HCl 2 mg 02/02/19 18:56 02/02/19 19:24 Dilaudid 2 Mg Injection IV 02/02/19 18:57 2 mg ONCE STA Administration Hydromorphone HCl Confirm 02/02/19 19:16 Hydromorphone 1 Mg/Ml Ampule Administered 02/02/19 19:17 Dose 2 mg .ROUTE .STK-MED ONE Ondansetron HCl 4 mg 02/02/19 19:22 02/02/19 19:23 Zofran 4 Mg/2 Ml Vial IV 02/02/19 19:23 4 mg STAT ONE Administration Ondansetron HCl Confirm 02/02/19 19:22 Zofran 4 Mg/2 Ml Vial Administered 02/02/19 19:23 Dose 4 mg .ROUTE .STK-MED ONE - Progress Progress: unchanged Progress Note: 02/02/19 21:04 Pt is well known to our ER. He presents to the ED, on days off his paracentesis , and asks for pain meds, secondary to distention. I explained to the pt that he has to go to , as they have a transplant plan for him, and can help him, and do paracentesis. Pt is very argumentative, and demands pain meds IV only. Then he demands Benadryl and Zofran, together. [facility] accepted the pt, and he will be transferred. I agreed to one dose on Dilaudid. I did not perform more blood work and tests, as pt has a diagnosis and a plan. Dr Clark in [facility] is accepting. Will see patient in: other - Departure Departure Disposition: Transfer Clinical Impression: Ascites due to alcoholic cirrhosis Condition: Stable Critical Care Time: No Referrals: RIN MARQUES MD [Primary Care Provider] - Additional Instructions: F/U with hepatology in [place]. F/U their orders and plans.
== END 2019-02-02 21:45 | disposition short-term general hospital (02) ==
LOC: ED 16:51
DX: K70.31 Alcoholic cirrhosis of liver with ascites (principal); Z98.890 Other specified postprocedural states; Z79.899 Other long term (current) drug therapy; E11.9 Type 2 diabetes mellitus without complications; M10.9 Gout, unspecified; B19.20 Unspecified viral hepatitis C without hepatic coma; K72.90 Hepatic failure, unspecified without coma
CPT/HCPCS: 36000; 96374; 96375; 99285; J1170; J2405; A9270-GY

== ENCOUNTER 2019-03-10 20:46 | Emergency (ER) | payer OTHER ==
[2019-03-10 20:56] VITALS: BP 123/97; PULSE 104; O2SAT 98
== END 2019-03-10 21:02 | disposition left against medical advice (07) ==
LOC: ED 20:46
DX: R10.9 Unspecified abdominal pain (principal)
CPT/HCPCS: 99283